=== PATIENT | female | born 1975 | race Caucasian/White ===

== ENCOUNTER → 2018-04-16 08:12 | Outpatient (CLI) | payer OTHER, SELFPAY ==
[2018-04-16 13:06] LABS: Cholesterol 105 mg/dL (200); Glucose 91 mg/dL (74-106); High Density Lipoprotein 39 mg/dL; T4 Free Direct 1.03 ng/dL (0.76-1.46); Triglycerides 94 mg/dL; Very Low Density Lipoprotein 19 mg/dL (5-40)
== END ==
PROVIDERS: Family Provider Family Medicine; PCP Family Medicine; Visit Provider Family Medicine
DX: E03.9 Hypothyroidism, unspecified (principal); Z13.220 Encounter for screening for lipoid disorders
CPT/HCPCS: 36415; 80061; 82947; 84439; 84443

== ENCOUNTER → 2020-09-14 12:17 | Outpatient (CLI) | payer OTHER, SELFPAY ==
[2020-03-05 15:00] VITALS: BMI 34.0
[2020-09-14 15:41] LABS: Absolute Lymphocyte Count 2.73 X10^3/uL (0.83-4.51); Basophil# 0.05 X10^3/uL; Basophil% 0.7 % (0-1); Eosinophil# 0.21 X10^3/uL; Eosinophils% 2.8 % (0-5); Hematocrit 42.1 % (37-47); Hemoglobin 13.4 g/dL (12.0-15.0); Lymphocyte # 2.73 X10^3/ul (4.0); Lymphocyte % 36.3 % (19-41); Mean Corp Hgb Conc 31.8 g/dL (32-36); Mean Corpuscular Volume 84.9 fL (81-99); Mean Platelet Vol. 11.9 fl (6.2-12.0); Monocyte# 0.51 X10^3/uL; Monocyte% 6.8 % (0-10); NRBC Flagged by Analyzer 0 % (0-5); Neutrophil # 4.01 X10^3/uL (2.7-7.7); Neutrophil % 53.1 % (47-70); Platelet Count 256 K/mm3 (150-450); RBC Distribution Width CV 13.6 % (11.6-14.6); RBC Distribution Width SD 41.9 fl (35.1-43.9); Red Blood Count 4.96 M/mm3 (4.2-5.4); White Blood Count 7.5 K/mm3 (4.4-11.0)
[2020-09-14 16:16] LABS: AST(SGOT) 21 U/L (15-37); Alanine Aminotransfer ALT/SGPT 28 U/L (13-56); Albumin, Serum 3.5 g/dL (3.2-5.0); Alkaline Phosphatase 65 U/L (45-117); Anion Gap 6 (5-15); BUN 14 mg/dL (7-18); Bilirubin, Direct 0.14 mg/dL (0.00-0.30); Calcium,Total 8.4 mg/dL (8.5-10.1); Chloride 107 mmol/L (98-107); EST Glomerular Filtration Rate 63 mL/min (>60); Est Glom Filt Rate - Afr Amer 76 mL/min (>60); Globulin 3.6 g/dL (2.2-4.2); Glucose 84 mg/dL (74-106); Potassium 3.6 mmol/L (3.5-5.1); Protein, Total 7.1 g/dL (6.4-8.2); Sodium Level 138 mmol/L (136-145); T4 Free Direct 0.97 ng/dL (0.76-1.46); Thyroid Stim Hormone (TSH) 0.25 uIU/mL (0.358-3.74)
[2020-09-15 10:16] LABS: Hepatitis B Surface Antibody Non-Reactive; Hepatitis B Surface Antigen Non-Reactive (Nonreactive); Hepatitis C Antibody Non-Reactive (Nonreactive); T3 Total - Triiodothyronine 1.15 ng/mL (0.6-1.81)
[2020-09-17 03:07] LABS: HEPATITIS B SURFACE AG Negative (Negative); Hepatitis A AB, Total Negative (Negative); Hepatitis A IgM Antibody Negative (Negative); Hepatitis B Core AB IgM Negative (Negative); Hepatitis B Core Ab Total Negative (Negative); Hepatitis C Ab <0.1 s/co ratio (0.0-0.9); QNTFERON TB Mitogen Value > 10.00 IU/mL (.); QNTFERON TB Nil Value 0.05 IU/mL (.); QNTFERON TB1+ Ag Value 0.04 IU/mL (.); QNTFERON TB2+ Ag Value 0.04 IU/mL (.)
[2020-09-17 05:43] LABS: Hep B Surface Antibodies Non Reactive (.); QNTIFERON TB Positive Criteria Negative (Negative)
== END ==
PROVIDERS: PCP Family Medicine; Referring Provider Dermatology Pediatric Dermatology; Visit Provider Dermatology Pediatric Dermatology
DX: L40.0 Psoriasis vulgaris (principal); L40.59 Other psoriatic arthropathy; R53.83 Other fatigue; Z79.899 Other long term (current) drug therapy
CPT/HCPCS: 36415; 80053; 82248; 84439; 84443; 84480; 85025; 86480; 86704; 86705; 86706; 86708; 86709; 86803; 87340

== ENCOUNTER → 2021-03-25 15:17 | Outpatient (CLI) | payer OTHER, SELFPAY ==
[2020-03-05 15:00] VITALS: BMI 34.0
--- NOTE | 2021-03-25 15:19 | BI_ITS ---
MAMMOGRAPHY - BILATERAL SCREENING REASON FOR EXAM: Female, 45 years old. Routine annual screening examination. PERTINENT HISTORY: Mother with breast cancer. TECHNIQUE: Digital bilateral breast eduard (3D mammographic acquisition) in the CC and MLO projections. 2-D mediolateral oblique (MLO) and craniocaudad (CC) views of both breasts were obtained. CAD: Full Field Digital Mammography with Computer Added Detection was performed. COMPARISON: Comparison is made with prior outside examination dated 03/02/2015. FINDINGS: Breast Composition: The breasts are heterogeneously dense, which may obscure small masses. There are no dominant masses or suspicious calcifications. Stable benign-appearing bilateral axillary lymph nodes. No other significant abnormalities are identified. There has been no significant change since the prior study. BI/SCRN MAMM (CAD)W/EDUARD BILAT IMPRESSION: Stable bilateral screening mammogram. Yearly follow-up mammogram recommended. (A) ASSESSMENT CATEGORY: BIRADS Category 2: Benign. A letter regarding these results will be sent to the patient by the facility within 30 days. Approximately 10% of breast cancers are not detected by mammography. A normal mammogram should not delay biopsy of a clinically suspicious abnormality. [id number] Electronically Signed: Claudio Isbell MD at 8:23 EDT , Service support ,
== END ==
PROVIDERS: PCP Internal Medicine; Referring Provider Obstetrics & Gynecology; Visit Provider Obstetrics & Gynecology
DX: Z12.31 Encounter for screening mammogram for malignant neoplasm of breast (principal)
CPT/HCPCS: 77063; 77067

== ENCOUNTER → 2022-05-13 | Outpatient (CLI) | payer OTHER, SELFPAY ==
[2022-05-13 12:16] LABS: Hemoglobin 12.7 g/dL (12.0-15.0); Mean Corpuscular Hgb 25.5 pg (27.0-32.0); Mean Corpuscular Volume 82.2 fL (81-99); Platelet Count 283 K/mm3 (150-450); RBC Distribution Width CV 15.5 % (11.6-14.6); RBC Distribution Width SD 45.9 fl (35.1-43.9); Red Blood Count 4.99 M/mm3 (4.2-5.4); White Blood Count 6.8 K/mm3 (4.4-11.0)
[2022-05-13 12:34] LABS: AST(SGOT) 27 U/L (15-37); Alanine Aminotransfer ALT/SGPT 31 U/L (13-56); Albumin, Serum 3.9 g/dL (3.2-5.0); Alkaline Phosphatase 67 U/L (45-117); Anion Gap 4 (5-15); BUN 14 mg/dL (7-18); BUN/Creat Ratio 13.1 RATIO (10-20); Chloride 107 mmol/L (98-107); Creatinine, Serum 1.07 mg/dL (0.55-1.02); EST Glomerular Filtration Rate 58 mL/min (>60); Est Glom Filt Rate - Afr Amer 70 mL/min (>60); Globulin 3.9 g/dL (2.2-4.2); Glucose 99 mg/dL (74-106); Protein, Total 7.8 g/dL (6.4-8.2); Sodium Level 139 mmol/L (136-145)
[2022-05-13 12:53] LABS: Hepatitis B Surface Antibody Non-Reactive
[2022-05-17 13:08] LABS: QNTFERON TB Mitogen Value > 10.00 IU/mL (.); QNTFERON TB Nil Value 0.17 IU/mL (.); QNTFERON TB1+ Ag Value 0.08 IU/mL (.); QNTFERON TB2+ Ag Value 0.08 IU/mL (.)
[2022-05-19 14:49] LABS: Hepatitis B Core Ab Total Negative (Negative); QNTIFERON TB Positive Criteria Negative (Negative)
== END | disposition home or self-care (01) ==
LOC: MTLAB 10:42
PROVIDERS: PCP Internal Medicine; Referring Provider Dermatology Pediatric Dermatology; Visit Provider Dermatology Pediatric Dermatology
DX: L40.0 Psoriasis vulgaris (principal); Z79.899 Other long term (current) drug therapy
CPT/HCPCS: 36415; 80053; 85027; 86480; 86704; 86706

== ENCOUNTER → 2022-11-21 | Outpatient (CLI) | payer OTHER, SELFPAY ==
[2022-11-21 10:56] LABS: Absolute Lymphocyte Count 1.96 X10^3/uL (0.83-4.51); Absolute Neutrophil Count 3.5 X10^3/uL (2.0-7.7); Basophil# 0.07 X10^3/uL; Basophil% 1.1 % (0-1); Eosinophil# 0.24 X10^3/uL; Eosinophils% 3.8 % (0-5); Hematocrit 25.1 % (37-47); Hemoglobin 7.4 g/dL (12.0-15.0); Lymphocyte # 1.96 X10^3/ul (0.83-4.51); Lymphocyte % 30.8 % (19-41); Mean Corp Hgb Conc 29.5 g/dL (32-36); Mean Corpuscular Hgb 23.4 pg (27.0-32.0); Mean Corpuscular Volume 79.4 fL (81-99); Monocyte% 9.4 % (0-10); NRBC Flagged by Analyzer 0.8 % (0-5); Neutrophil # 3.45 X10^3/uL (2.7-7.7); Neutrophil % 54.1 % (47-70); Platelet Count 306 K/mm3 (150-450); RBC Distribution Width CV 16.6 % (11.6-14.6); RBC Distribution Width SD 48.4 fl (35.1-43.9); Red Blood Count 3.16 M/mm3 (4.2-5.4); White Blood Count 6.4 K/mm3 (4.4-11.0)
[2022-11-24 18:50] LABS: HPV APTIMA, High Risk Negative (Negative)
== END | disposition home or self-care (01) ==
PROVIDERS: PCP Internal Medicine; Referring Provider Nurse Practitioner Women's Health; Visit Provider Nurse Practitioner Women's Health
DX: N92.0 Excessive and frequent menstruation with regular cycle (principal); Z12.4 Encounter for screening for malignant neoplasm of cervix; Z13.29 Encounter for screening for other suspected endocrine disorder
CPT/HCPCS: 36415; 84443; 85025; 87624; 88175; G0145

== ENCOUNTER → 2022-11-22 | Outpatient (CLI) | payer OTHER, SELFPAY ==
--- NOTE | 2022-11-22 14:11 | BI_ITS ---
MAMMOGRAPHY - BILATERAL SCREENING REASON FOR EXAM: Female, 47 years old. Routine annual screening examination. PERTINENT HISTORY: Mother with breast cancer. TECHNIQUE: Digital bilateral breast eduard (3D mammographic acquisition) in the CC and MLO projections. 2-D mediolateral oblique (MLO) and craniocaudad (CC) views of both breasts were obtained. CAD: Full Field Digital Mammography with Computer Added Detection was performed. COMPARISON: Comparison is made with prior study 03/25/2021. FINDINGS: Breast Composition: The breasts are heterogeneously dense, which may obscure small masses. There are no dominant masses or suspicious calcifications. Stable fat-containing bilateral axillary lymph nodes. No other significant abnormalities are identified. There has been no significant change since the prior study. BI/SCRN MAMM (CAD)W/EDUARD BILAT IMPRESSION: Stable bilateral screening mammogram. Yearly follow-up mammogram recommended. (A) ASSESSMENT CATEGORY: BIRADS Category 2: Benign. A letter regarding these results will be sent to the patient by the facility within 30 days. Approximately 10% of breast cancers are not detected by mammography. A normal mammogram should not delay biopsy of a clinically suspicious abnormality. [id number] Electronically Signed: Claudio Isbell MD at 15:25 EST ,
== END | disposition home or self-care (01) ==
PROVIDERS: PCP Internal Medicine; Referring Provider Nurse Practitioner Women's Health; Visit Provider Nurse Practitioner Women's Health
DX: Z12.31 Encounter for screening mammogram for malignant neoplasm of breast (principal); Z80.3 Family history of malignant neoplasm of breast
CPT/HCPCS: 77063; 77067

== ENCOUNTER → 2022-11-24 | Outpatient (CLI) | payer OTHER, SELFPAY ==
--- NOTE | 2022-11-24 | EMB_PTH ---
PATIENT: MELCHOR ROSS LOC: [facility] U#:[id number] AGE/SX: 47/F ROOM: RE11/24/[address]: DIANA Malone : 1975 BED: DIS: 11/24/2022 SPEC #: [id number] RECD: 11/24/22 10:43 STATUS: RADHA REQ #: [id number] MELANIE: 11/24/22 00:[address]: Lizbeth Lima NP DEPT: SURGICAL PATHOLOGY RECD BY: Delma Lynn ENTERED: 11/24/22 13:30 SP TYPE: ENDOM BX/C WONG DR: Dr. Alia Paulino MD Tissues: Endometrium, NOS Procedures: Surgery Specimen Level IV HEADER OPERATION: Endometrial biopsy PRE-OP DIAGNOSIS: Abnormal uterine bleeding TISSUE SUBMITTED: Endometrial tissue MICROSCOPIC DIAGNOSIS Endometrium, biopsy: Secretory endometrium. AM:catherine 11/25/2022 MICROSCOPIC DESCRIPTION Slides are reviewed. GROSS DESCRIPTION Received is one container labeled with the patient's name and not further designated. The specimen consists of multiple irregular fragments of light renee soft tissue that in aggregate measure 3 x 2 x 0.2 cm. The specimen is totally submitted in one cassette. / AM:catherine 11/24/2022 TC:5 CPT: 37513
== END | disposition home or self-care (01) ==
LOC: LABSPEC 10:51
PROVIDERS: PCP Internal Medicine; Referring Provider Nurse Practitioner Women's Health; Visit Provider Nurse Practitioner Women's Health
DX: N93.9 Abnormal uterine and vaginal bleeding, unspecified (principal)
CPT/HCPCS: 88305

== ENCOUNTER → 2022-11-29 | Outpatient (CLI) | payer OTHER, SELFPAY ==
--- NOTE | 2022-11-29 08:17 | US_ITS ---
STUDY: ULTRASOUND OF THE FEMALE PELVIS - COMPLETE REASON FOR EXAM: Female, 47 years old. Heavy menses. LMP: 10/26/2022. TECHNIQUE: Transabdominal and Transvaginal TECHNICAL QUALITY: Adequate. COMPARISON: None. FINDINGS: The uterus is anteverted and is tilted to the left side of the pelvis. The uterus measures 10.5 cm x 7.2 cm x 6.4 cm. Normal uterine cervix. The endometrium is thickened and measures 27 mm in thickness, and is heterogeneous (striated). There is no demonstrated endometrial mass. There is a 4.3 cm x 3.9 cm by 3.2 cm fundal fibroid. I.U.D. - The patient does not have an I.U.D. The right ovary is visualized. The right ovary measures 3.7 cm x 3.1 cm x 3.7 cm. There is a 2.9 cm x 2.9 cm x 2.7 cm right ovarian cyst. There is no visualized right adnexal mass or complex lesion. There is normal arterial and normal venous vascularity. The left ovary is visualized. The left ovary is enlarged and measures 7 cm x 7 cm x 5.8 cm. There is a 6.3 cm x 7 cm x 5.7 cm left ovarian cyst. There is no visualized left adnexal mass or complex lesion. There is normal arterial and normal venous vascularity. There is no fluid in the cul-de-sac. The pre void volume of the bladder was 221 ml. US/Pelvic (Non ) IMPRESSION: Heterogeneous thickening of the endometrium. Bilateral ovarian cysts more prominent on the left side. Electronically Signed: Claudio Isbell MD at 12:50 EST ,
== END | disposition home or self-care (01) ==
PROVIDERS: PCP Internal Medicine; Referring Provider Nurse Practitioner Women's Health; Visit Provider Nurse Practitioner Women's Health
DX: N92.0 Excessive and frequent menstruation with regular cycle (principal)
CPT/HCPCS: 76830; 76856

== ENCOUNTER → 2022-12-19 | Outpatient (CLI) | payer OTHER, SELFPAY ==
[2022-12-19 12:16] LABS: Absolute Lymphocyte Count 2.16 X10^3/uL (0.83-4.51); Absolute Neutrophil Count 2.7 X10^3/uL (2.0-7.7); Basophil# 0.04 X10^3/uL; Basophil% 0.7 % (0-1); Eosinophil# 0.19 X10^3/uL; Eosinophils% 3.4 % (0-5); Hematocrit 33.9 % (37-47); Hemoglobin 9.7 g/dL (12.0-15.0); Lymphocyte # 2.16 X10^3/ul (0.83-4.51); Lymphocyte % 39.1 % (19-41); Mean Corp Hgb Conc 28.6 g/dL (32-36); Mean Corpuscular Hgb 23.9 pg (27.0-32.0); Mean Corpuscular Volume 83.5 fL (81-99); Mean Platelet Vol. 10.7 fl (6.2-12.0); Monocyte# 0.37 X10^3/uL; Monocyte% 6.7 % (0-10); NRBC Flagged by Analyzer 0 % (0-5); Neutrophil # 2.74 X10^3/uL (2.7-7.7); Neutrophil % 49.7 % (47-70); Platelet Count 289 K/mm3 (150-450); RBC Distribution Width CV 17.1 % (11.6-14.6); RBC Distribution Width SD 52.2 fl (35.1-43.9); Red Blood Count 4.06 M/mm3 (4.2-5.4); White Blood Count 5.5 K/mm3 (4.4-11.0)
== END | disposition home or self-care (01) ==
LOC: PAVLAB 11:42
PROVIDERS: PCP Internal Medicine; Referring Provider Nurse Practitioner Women's Health; Visit Provider Nurse Practitioner Women's Health
DX: D64.9 Anemia, unspecified (principal)
CPT/HCPCS: 36415; 85025

== ENCOUNTER 2023-02-14 08:16 | Day surgery (SDC) | payer OTHER, SELFPAY ==
[2023-02-09 09:24] LABS: Absolute Neutrophil Count 4.2 X10^3/uL (2.0-7.7); Basophil# 0.07 X10^3/uL; Basophil% 0.9 % (0-1); Eosinophil# 0.19 X10^3/uL; Eosinophils% 2.5 % (0-5); Hematocrit 41.5 % (37-47); Hemoglobin 12.8 g/dL (12.0-15.0); Lymphocyte % 34.5 % (19-41); Mean Corp Hgb Conc 30.8 g/dL (32-36); Mean Corpuscular Hgb 24.7 pg (27.0-32.0); Mean Platelet Vol. 11.1 fl (6.2-12.0); Monocyte% 6.6 % (0-10); NRBC Flagged by Analyzer 0 % (0-5); Neutrophil # 4.15 X10^3/uL (2.7-7.7); Neutrophil % 55.2 % (47-70); Platelet Count 298 K/mm3 (150-450); RBC Distribution Width SD 42.5 fl (35.1-43.9); Red Blood Count 5.19 M/mm3 (4.2-5.4); White Blood Count 7.5 K/mm3 (4.4-11.0)
[2023-02-09 10:02] LABS: Magnesium 2.2 mg/dL (1.6-2.6); Thyroid Stim Hormone (TSH) 8.49 uIU/mL (0.358-3.74)
[2023-02-14] VITALS (13 sets, daily range): BP systolic 123–145; BP diastolic 77–102; PULSE 66–101; RESP 16–18; TEMP 36.2–37.4; O2SAT 95–100; BMI 36.8
[2023-02-14] MEDS: Lactated Ringers 1,000 ML 40 ML IV (08:50)
[2023-02-14] MEDS: Magnesium 1 GM over 15 mins IV (08:52)
[2023-02-14] MEDS: dexAMETHasone 4 MG/ML Vial 8 MG IV (09:10)
[2023-02-14] MEDS: Celecoxib 200 MG Capsule 400 MG PO (09:13)
[2023-02-14] MEDS: Phenazopyridine 95 MG Tablet 190 MG PO (09:14)
[2023-02-14] MEDS: Acetaminophen 500 MG Tablet 1000 MG PO (09:14)
[2023-02-14] MEDS: Gabapentin 600 MG Tablet PO (09:15)
[2023-02-14 09:26] LABS: Internal QC Validated? YES +Cl - CLEAR BKGD; Pregnancy, Serum, hCG Quali. NEGATIVE Negative
[2023-02-14 09:40] LABS: Bedside Glucose 109 mg/dL (74-106)
--- NOTE | 2023-02-14 10:04 | PCM.HP.BLA ---
History and Physical Date of Admission: 02/14/23 Intake Vital Signs ? 01/31/2314:46 01/31/2314:50 Height 5 ft 7 in 5 ft 7 in Weight: 235 lb 4 oz ? BMI 36.8 ? BP 133/82 H ? 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 Psoriasis Psoriatic arthritis Thyroid disorder Family History? Mother Heart disease Osteoporosis Breast cancerSon Diabetes Social History? Smoking Status:? Never smoker alcohol intake:? never substance use type:? does not use caffeine:? Yes what type of physical activity do you participate in:? walking seatbelt use:? always do you feel safe at home:? Yes HPI TVH left SO cysto Details: Details: MELCHOR ROSS is a 47 year old who presents for discussion about heavy menses, fibroid uterus, and a 7 cm cyst on her left ovary. She has tried multiple rounds of aygestin without success of stopping periods. She states that she had normal menses until October 27. On that day she started bleeding and has not stopped. ultrasound shows the following: FINDINGS: The uterus is anteverted and is tilted to the left side of the pelvis.? The uterus measures 10.5 cm x 7.2 cm x 6.4 cm.? Normal uterine cervix.? The endometrium is thickened and measures 27 mm in thickness, and is heterogeneous (striated).? There is no demonstrated endometrial mass. There is a 4.3 cm x 3.9 cm by 3.2 cm fundal fibroid. ? I.U.D. - The patient does not have an I.U.D. The right ovary is visualized.? The right ovary measures 3.7 cm x 3.1 cm x 3.7 cm.? There is a 2.9 cm x 2.9 cm x 2.7 cm right ovarian cyst.? There is no visualized right adnexal mass or complex lesion. There is normal arterial and normal venous vascularity. The left ovary is visualized.? The left ovary is enlarged and measures 7 cm x 7 cm x 5.8 cm.? There is a 6.3 cm x 7 cm x 5.7 cm left ovarian cyst. There is no visualized left adnexal mass or complex lesion.? There is normal arterial and normal venous vascularity. There is no fluid in the cul-de-sac. The pre void volume of the bladder was 221 ml. She would like to proceed with hysterectomy to stop the bleeding and avoid use of hormones and also to aleviate her pain. Female Reproductive History Last Menstrual Period: 10/27/22 Cycle Length: 21-35 Bleeding Duration: 8 Questions: metorrhagia: Yes and sexually active: Yes Menopausal Symptoms: No night sweats History ? ? ? 4 ? Elective abortions ? Hx Para ? ? ? 4 ? Spontaneous abortions ? Hx # Term Pregnancies ? Ectopic pregnancies ? Hx # Pregnancies ? Multiple births ? # of living children ? Past Pregnancies Del. Date Name GA/Weeks Outcome Route Bth Weight Infant Gen Labor Lgth Anesthesia Del Locatn Provider FOB Unknown 1994 Alee ? live - full term ? Unknown 1996 Justino ? live - full term ? Unknown 2000 Korey ? live - full term ? Unknown 2004 Jagger ? live - full term ? ROS Const ROS Unobtainable: All systems reviewed & are unremarkable except as noted in H Constitutional: Denies fatigue, night sweats, weight gain or weight loss ENT ENT: Reports system reviewed and no additional complaints, except as documented Cardio Card: Denies chest pain Resp Resp: Reports system reviewed and no additional complaints, except as documented; Denies cough GI GI: Reports as per HPI : Denies nipple discharge, urinary frequency, urinary incontinence, urinary hesitancy, urinary urgency, vaginal discharge, vaginal dryness, vaginal odor or vaginal pruritus Musc Musc: Denies arthralgias, back pain or muscle weakness Skin Skin/Breast: Denies alopecia, change in hair, dry skin, breast mass, breast pain, breast skin changes or nipple discharge Neuro Neuro: Reports system reviewed and no additional complaints, except as documented Psych Psych: Reports system reviewed and no additional complaints, except as documented Endo Endo: Denies cold intolerance, excessive sweating, heat intolerance or polydipsia Nelson/Lymph Hematologic/Lymphatic: Denies easy bleeding, Denies easy bruising and Denies lymphadenopathy Exam Const General: cooperative, healthy appearing, comfortable and no acute distress Orientation: alert [facility] [place] Head: normal to inspection and normocephalic Ears: hearing grossly normal bilaterally and external ears normal Nose: external nose normal and nares normal Face and sinus: normal facial exam Neck Neck: normal visual inspection and no lymphadenopathy Thyroid: thyroid normal Chest Chest palpation & inspection: normal inspection of the chest Resp Effort & Inspection: normal respiratory effort Auscultation: clear to auscultation bilaterally Cardio Rate: regular rate Rhythm: regular rhythm Heart Sounds: S1 normal and S2 normal GI Inspection: normal to inspection and non-distended Palpation: soft and no hepatosplenomegaly Musc Other: gross motor intact no deficits, full bilateral strength Skin General: no rashes or lesions noted Neuro General: patient alert, patient awake, moves all extremities and no focal motor deficits Motor: muscle tone normal throughout Extrem General: normal to inspection and no pedal edema Psych Appearance: grossly normal Mental Status: mental status grossly normal Affect: normal affect Speech and Movement: speech and movement normal Coding Level of Care Code No Charge Diagnoses Menorrhagia with regular cycle? N92.0 Uterine fibroid? D25.9 Simple ovarian cyst? N83.209 Assessment and Plan Assessment and Plan (1) Menorrhagia with regular cycle: ?Status:?Acute ?Comment: EMB:secretory endometrium (2) Uterine fibroid: ?Status:?Acute ?Comment: 4cm. Consult JV hysterectomy (3) Simple ovarian cyst: ?Status:?Acute ?Comment: Left:6cm Right:2cm Plan After discussing the patient's diagnosis and treatment plan options, patient wishes to proceed with surgical management.? I have discussed with the patient the risks, benefits, and alternatives of the procedure which include but are not limited to risks of anesthesia, bleeding, infection, possible damage to bowel, bladder, or surrounding vasculature which could lead to additional surgery to evaluate any complications.? Patient agrees to procedure and wishes to proceed.? ACOG/uptodate references given for additional information regarding procedure.?
--- NOTE | 2023-02-14 10:20 | HYST_PTH ---
PATIENT: MELCHOR ROSS [place] [facility] [place][id number] AGE/SX: 47/F ROOM: RE02/14/[address]: Dr. Vicky Hodgson DO : 1975 BED: DIS: 02/14/2023 SPEC #: [id number] RECD: 02/14/23 14:47 STATUS: RADHA LOVETT #: [id number] MELANIE: 02/14/23 10:[address]: Vicky Hodgson DEPT: SURGICAL PATHOLOGY RECD BY: Ephraim De Paz ENTERED: 02/15/23 08:14 SP TYPE: HYSTERECT OTHR DR: MD Dr. Alia Gee MD Tissues: Uterus, NOS Procedures: Surgery Specimen Level V HEADER OPERATION: ERAS, lap robotic hysterectomy, salpingo-oophorectomy, cystoscopy PRE-OP DIAGNOSIS: Menorrhagia with regular cycle, uterine fibroid, simple ovarian cyst TISSUE SUBMITTED: Uterus, cervix, bilateral fallopian tubes, cyst MICROSCOPIC DIAGNOSIS Uterus, hysterectomy: Cervix ? mild chronic inflammation. Endometrium ? weakly proliferative to inactive endometrium with focal benign stromal hyperplasia consistent with exogenous hormonal effect. Myometrium ? leiomyomas and adenomyosis. Right and left fallopian tubes ? benign paratubal cysts. AM:catherine 02/16/2023 MICROSCOPIC DESCRIPTION Slides are reviewed. GROSS DESCRIPTION Received in fixative is one container labeled with the patient's name and designated uterus, cervix, bilateral fallopian tube, cyst. The specimen consists of a hysterectomy specimen consisting of uterus with cervix and attached bilateral fallopian tubes with one of the fallopian tubes showing an adjacent cyst. The specimen could not be oriented due to small detached pieces of uterus. The uterus with cervix and detached pieces weigh in aggregate 184 gm. The uterus with cervix measures 11.5 x 8.0 x 9.0 cm. The detached piece of uterus measures in aggregate 6.0 x 5.0 x 2.0 cm. The serosal surface is renee, glistening. The ectocervical mucosa is focally congested. The external os is oval and patulous in contour. The endocervical canal measures 4.0 cm in length and the endocervical mucosa is renee, glistening and unremarkable. The triangular endometrial cavity measures 5.5 cm in length and up to 2.5 cm in width. The endometrium is renee, glistening without any mass lesion and measures 0.1 cm in thickness. Serial sections of the uterine wall reveal two nodular masses measuring 1.0 and 6.0 in greatest dimension. Sections of these masses reveal renee whorled cut surfaces without areas of hemorrhage, necrosis or cystic degeneration. The uterine wall measures up to 4.0 cm thickness. One fallopian tube measures 6.0 cm in length and 0.7 in diameter. The fimbrial end is identified. A paratubal cyst is also noted measuring 0.7 cm in greatest dimension. The second fallopian tube measures 7.5 cm in length and 0.6 in diameter. The fimbrial end is identified. A cyst is noted adjacent to the fimbrial end measuring 3.0 x 3.5 x 2.0 cm. A paratubal cyst is also noted measuring 1.0 cm in greatest dimension. The larger cyst external surface is inked and without any papillation. The larger cyst external surface is inked black. Sections reveal a collapse cyst without any cyst contents. No papillations are identified in the small cyst wall also. The cyst wall measures 0.2 cm in thickness. Pocket Maker sections are submitted in 12 cassettes as follows: 1 & 2 - cervix, 3-6 - uterine wall including endometrium, 7 - larger nodular mass, 8 - larger nodular mass and also smaller nodular mass, 9 - one fallopian tube, 10 - second fallopian tube and smaller paratubal cyst, 11 & 12 - larger cyst adjacent to the fallopian tube. / RIANA:catherine 02/15/2023 TC:1 CPT: 35044
[2023-02-14] MEDS: Cefazolin 2 GM in 0.9% Normal Saline 100 ML IV (10:28)
[2023-02-14] MEDS: Bupivacaine 0.25% 30 ML Vial (11:43)
--- NOTE | 2023-02-14 13:06 | PCM.OP.BLANK ---
Problems Associated Problem List Diagnoses (1) Menorrhagia with regular cycle: (2) Thickened endometrium: (3) Uterine fibroid: (4) Anemia: (5) Simple ovarian cyst: Operative Report Date of Procedure: 02/14/23 Preoperative diagnosis: menorrhagia, abnormal uterine bleeding, large posterior uterine fibroid, large left adnexal simple cyst Postoperative diagnosis: menorrhagia, abnormal uterine bleeding, large posterior uterine fibroid, large left adnexal simple cyst Procedure: Total robotic hysterectomy bilateral salpingectomy, removal of peritubal cyst on left adnexa, and cystoscopy surgeon: Dr. Vicky Hodgson DO Casting Technician: Evette CLEMENT Anesthesia: General endotracheal intubation Estimated blood loss: 100cc Urine output:800 Drains: None Implanted material: None Complications: None Findings: 13 cm size uterus, normal appearing ovaries and right fallopian tube, left large ashley-tubal cyst measuring 7 cm. On exploration of the abdominal cavity the uterus, adnexa, bowel, and liver were found to be normal, with exception of the large cyst on the left fallopian tube and posterior fibroid. Cystoscopy showed no evidence of leaking at approximately 250 cc of normal saline, positive ureteral orifices and jet flow are seen and no suture material was appreciated in the bladder. Specimens removed: Uterus and cervix, Bilateral tubes Reason for surgery: This is a 47-year-old G5, P5 who presented to my office with the complaint of irregular heavy periods. Ultrasound showed an enlarged uterus with a large left adnexal simple cyst. the planned procedure is for a robotic hysterectomy the risks benefits and alternatives were discussed with the patient the patient had a clear understanding of the procedure and a consent form was signed. Procedure: The patient was placed in the dorsal low lithotomy position and prepped and draped in the normal sterile fashion both abdominally and in the perineum. Her legs were placed in stirrups a Simpson catheter was inserted into the urethra without difficulty. A weighted speculum was placed in the vagina and a single-tooth tenaculum was used to grasp the anterior lip of the cervix. An advincula uterine manipulator was inserted through the cervix without complication. It was then tied into place at the 2 and 10:00 locations on the cervix. Gloves were changed and attention was turned towards the abdomen. Approximately 23 cm above the pubic symphysis in the midline, and after Marcaine injection, an 8 mm incision was made. An 8 mm trocar was inserted through the laparoscope, then inserted into the abdomen under direct visualization using the laparoscope. Good abdominal placement was noted and no complications were appreciated. An air seal device was utilized to create pneumoperitoneum. At 12 cm lateral to the midline on the left and right sides 8 mm accessory ports were placed. Next a left upper quadrant 8 mm information services assistant port site was placed. Next a small alxesis retractor was inserted in periumbilical site after extending the incision to 2 cm in size. The airseal device and camera robotic sites were used through this single site. The patient was placed in steep Trendelenburg position. The robot was docked. The hysterectomy was initiated first by taking down the round ligament on each side using the vessel sealer device. The fallopian tubes, including the left peritubal cyst were removed using the vessel sealer device to the level of the cornua/ These areas were freed without complication the broad ligament was then and taken down using the vessel sealer device. Next the bladder flap was taken down without complication. This was done using monopolar cautery to the level of the cervical vaginal junction. After the bladder flap was created, uterine vessels were then isolated and cauterized using the vessel sealer device and EndoShears. At this point the uterine vessels were taken down further starting from the ascending branch, dissecting along the edges of the cervix to the level of the cervical vaginal junction with hemostasis appreciated. The cervical vaginal junction was then using monopolar cautery in a circumferential pattern across the superior aspect of the cervix. The specimen was delivered through the vagina and sent to pathology. The remaining vaginal cuff was then closed using OV lock suture. This was performed in a running technique. Excellent hemostasis was obtained and good closure was noted. Irrigation was then performed. All operative sites were noted to be hemostatic. A cystoscopy was performed with a 70 degree cystoscope through the urethra into the bladder without complication. The bladder was instilled with approximately 250 cc of normal saline. Intraoperative images were made. Ureteral orifices and jets were identified. No suture material was appreciated in the bladder. The bladder was then drained and cystoscope was removed. The abdominal cavity was again examined using the laparoscope after the robot was undocked. All operative sites were noted to be hemostatic. The trochars were removed under direct visualization without complication and pneumoperitoneum was reduced. At this point the skin was then closed using 4-0 Monocryl subcuticular stitch and sealed with surgical glue. The patient tolerated the procedure well sponge lap and needle counts were correct x2 the patient was taken to the recovery room in stable condition. Multi Select Codes Urinary/Genital Urinary/Genital CPT Codes: 39689 Cystoscopy and 97068 TLH+BS/O >250gr uterus
--- NOTE | 2023-02-14 13:13 | DCINST_ITS ---
Discharge Instructions Diet Discharge Diet: No restrictions Activity May resume sexual activity in: 6 weeks Weight Bearing Status: Full weight bearing Dressing / Incision Call your doctor if your incision/area has: Continuous Slow Oozing, Sudden Increased Bleeding, Increased Pain/ Swelling, Increased Redness and Foul Smelling Discharge Call your doctor if you observe: Fever of 101 or Higher, Using more than 1 pad per hour, Shortness of breath, Chest pain and Uncontrolled pain Suture Line Care: Avoid Pulling/Pushing and Avoid Pinching/Bending Remove Dressing in: 1 week (if present) Cleanse incision/area with: Soap & Water and Keep Dressing Clean & Dry Follow Up Care Please Follow Up With: iVcky Hodgson DO When: Call to make an appointment with your doctor for a postop visit in 2 and 6 weeks Test Results: Test results from this visit will be discussed in further detail at your follow- up appointment, if applicable. Discharge Plan Admission Primary Reason for Your Visit: hysterectomy Attending Provider: Vicky Hodgson Primary Care Provider: Alia Paulino Consulting Providers: Vasiliy Narvaez Discharge Orders/Prescriptions Prescriptions: New oxycodone-acetaminophen [Percocet] 5-325 mg tablet 1 tab PO Q4H PRN (Reason: pain) 7 Days Qty: 30 0RF Rx Instructions: 1-2 tabs q 4 hrs as needed for pain naproxen 500 mg tablet 500 mg PO BID PRN (Reason: pain) Qty: 30 0RF Continued Tremfya 100 mg/mL syringe 100 mg subcut Q8W levothyroxine 150 MCG tablet 200 mcg PO DAILY Women's 50 Plus Advanced 400-20 mcg Tablet 1 tab PO DAILY Discontinued megestrol 40 mg tablet 40 mg PO DAILY Qty: 30 0RF Referrals / Follow Up: Alia Paulino MD [Primary Care Provider] - Disposition Disposition (needs filled in before D/C Order can be placed): Home, Self Care
[2023-02-14] MEDS: Lactated Ringers @ 70 MLS/HR 70 ML IV (13:15)
[2023-02-14] MEDS: HYDROcodone Bitartrate/Apap 5/325 Tablet PO (15:48)
[2023-02-14] MEDS: Ondansetron 4 MG/2 ML Vial IM (16:26)
== END 2023-02-14 18:23 | disposition home or self-care (01) ==
LOC: SDC 08:17 → AC 08:18
PROVIDERS: Anesthesiology; PCP Internal Medicine; Referring Provider Obstetrics & Gynecology; Visit Provider Obstetrics & Gynecology
PROC: 0UT94ZZ Resection of Uterus, Percutaneous Endoscopic Approach (ICD-10-PCS; CPT 58571; principal; 2023-02-14 10:00)
DX: N80.03 Adenomyosis of the uterus (principal); D25.9 Leiomyoma of uterus, unspecified; N83.8 Other noninflammatory disorders of ovary, fallopian tube and broad ligament; E07.9 Disorder of thyroid, unspecified; Z79.899 Other long term (current) drug therapy
CPT/HCPCS: 58571; S2900; 00840; 36415; 82962; 83735; 84443; 84703; 85025; 86850; 86900; 86901; 88307; 93005; J7120; J2405; J3475

== ENCOUNTER → 2023-09-04 | Outpatient (CLI) | payer OTHER, SELFPAY ==
[2023-09-06 18:07] LABS: Hepatitis B Core Ab Total Negative (Negative); QNTFERON TB Mitogen Value > 10.00 IU/mL (.); QNTFERON TB Nil Value 0.03 IU/mL (.); QNTFERON TB1+ Ag Value 0.04 IU/mL (.); QNTFERON TB2+ Ag Value 0.05 IU/mL (.); QNTIFERON TB Positive Criteria Negative (Negative)
== END | disposition home or self-care (01) ==
LOC: MTLAB 14:17
PROVIDERS: PCP Internal Medicine; Referring Provider Physician Assistant; Visit Provider Physician Assistant
DX: L40.0 Psoriasis vulgaris (principal); Z79.899 Other long term (current) drug therapy
CPT/HCPCS: 36415; 86480; 86704

== ENCOUNTER 2023-11-09 06:30 | Emergency (ER) | payer OTHER, SELFPAY ==
[2023-11-09 06:31] VITALS: BP 140/86; PULSE 93; RESP 16; TEMP 36.3; O2SAT 98; BMI 34.3
--- NOTE | 2023-11-09 06:53 | RAD_ITS ---
EXAM: XR CHEST, 1 VIEW CLINICAL INDICATION: syncope TECHNIQUE: Frontal view of the chest. COMPARISON: Two-view chest 11/22/2017 FINDINGS: LUNGS AND PLEURAL SPACES: Unremarkable. No consolidation or edema. No pneumothorax. No effusion. HEART: Unremarkable. Cardiac silhouette not enlarged. MEDIASTINUM: Central airways and mediastinal contour are unremarkable. BONES/JOINTS: Unremarkable. No acute fracture. SOFT TISSUES: Unremarkable. RAD/Chest 1 View (Portable) IMPRESSION: No radiographic evidence of acute cardiopulmonary disease. Electronically Signed: Sid Womack MD at 7:53 EST ,
--- NOTE | 2023-11-09 06:55 | EKG12_ITS ---
Test Reason : SYNCOPE Blood Pressure : / mmHG Vent. Rate : 083 BPM Atrial Rate : 083 BPM P-R Int : 170 ms QRS Dur : 078 ms QT Int : 382 ms P-R-T Axes : 027 -16 019 degrees QTc Int : 448 ms Normal sinus rhythm Normal ECG Confirmed by DEVONTE MANLEY, ALONZO ([id number]), business editor RODRIGO GARCIA ([id number]) on 11/10/2023 7:14:33 AM Referred By: Confirmed By:ALONZO WHITNEY MD
[2023-11-09 07:05] LABS: Absolute Lymphocyte Count 1.84 X10^3/uL (0.83-4.51); Basophil# 0.06 X10^3/uL; Basophil% 0.5 % (0-1); Eosinophil# 0.09 X10^3/uL; Eosinophils% 0.8 % (0-5); Hematocrit 45.7 % (37-47); Hemoglobin 14.6 g/dL (12.0-15.0); Lymphocyte # 1.84 X10^3/ul (0.83-4.51); Lymphocyte % 15.5 % (19-41); Mean Corp Hgb Conc 31.9 g/dL (32-36); Mean Corpuscular Hgb 27.5 pg (27.0-32.0); Mean Corpuscular Volume 86.2 fL (81-99); Monocyte# 0.87 X10^3/uL; Monocyte% 7.3 % (0-10); NRBC Flagged by Analyzer 0 % (0-5); Neutrophil # 8.96 X10^3/uL (2.7-7.7); Neutrophil % 75.5 % (47-70); Platelet Count 291 K/mm3 (150-450); RBC Distribution Width CV 13.3 % (11.6-14.6); RBC Distribution Width SD 41.9 fl (35.1-43.9); White Blood Count 11.9 K/mm3 (4.4-11.0)
--- NOTE | 2023-11-09 07:11 | EX.ED.DYSGE1 ---
HPI History of Present Illness Chief Complaint: Syncope Narrative Narrative: 48-year-old female presenting to the emergency department following a syncopal episode. Patient states that she woke this morning and realized that she slept in her contacts. She sat on the bed and got her phone light turned on and eventually made her way into the bathroom. She states that she started to remove her contacts when suddenly she felt like she might pass out. She tried to stabilize herself but ended up having a syncopal episode and falling to the ground. She states that she has pain in the muscle between her shoulder and her right side of her neck. She denies any headache or head injury. The patient notes that she did was not experiencing any chest pain or palpitations diaphoresis or any pain before she passed out. She does not feel that she got up too quickly. She does not have a history of syncope. Family that was with her stated that she looked very pale but was not diaphoretic. No loss of bowel or bladder control. The patient notes that she did go tanning yesterday and caused a sunburn. She does not feel dehydrated. [facility] Medical History Anemia Anxiety Back pain CPAP (continuous positive airway pressure) dependence Depression Menorrhagia with regular cycle Migraine headache Non-smoker Psoriasis Psoriatic arthritis Simple ovarian cyst Thickened endometrium Thyroid disorder Uterine fibroid Wears contact lenses Wears partial dentures Home Medications levothyroxine 150 mcg tablet 150 mcg PO DAILY HYPOTHYROID 11/22/17 [History Last Taken 02/14/23] guselkumab 100 mg/mL subcutaneous syringe (Tremfya) 100 mg subcut Q8W 11/21/22 [History Last Taken Unknown] ogmqiwrbcisl-lknlybus-gxlvwpm-folic acid 400 mcg-vit K1 20 mcg tablet (Women's 50 Plus Advanced) 1 tab PO DAILY 02/07/23 [History Last Taken Unknown] fluoxetine 20 mg capsule 20 mg PO DAILY 11/09/23 [History Last Taken Unknown] hydroxyzine HCl 25 mg tablet 25 mg PO QHS PRN anxiety 11/09/23 [History Last Taken Unknown] Allergy/AdvReac Type Severity Reaction Status Date / Time No Known Allergies Allergy Verified 03/29/23 08:33 Family History Mother Heart disease Osteoporosis Breast cancer Son Diabetes Surgical History Hx of wisdom tooth extraction Status post hysterectomy Social History Smoking Status: Never smoker alcohol intake: never substance use type: does not use caffeine: Yes what type of physical activity do you participate in: walking seatbelt use: always do you feel safe at home: Yes ROS ROS ED Constitutional Constitutional ED: Denies chills or weight loss Eyes Eyes: Denies change in vision or diplopia ENT ENT ED: Denies ear pain, rhinorrhea or sore throat Cardiovascular Cardiovascular: Reports other Details: Syncope ; Denies chest pain, orthopnea, palpitations or racing heartbeat Respiratory/Chest Respiratory/Chest: Denies cough, dyspnea or orthopnea Gastrointestinal Gastrointestinal: Denies abdominal pain, diarrhea, nausea or vomiting Genitourinary Genitourinary ED: Denies dysuria, hematuria or urinary frequency Musculoskeletal Musculoskeletal: Reports neck pain; Denies arthralgias or myalgias Integumentary Denies abscess or rash Neurologic Neurologic: Denies headache(s) or weakness Psychiatric Psychiatric: Denies anxiety, depression, suicidal ideation or suicidal thoughts Endocrine Endocrinology: Denies polydipsia, polyphagia or polyuria Allergic/Immunologic Allergic/Immunologic ED: Denies mouth swelling, tongue swelling or urticaria EXAM Physical Exam Const Vital Signs: 11/09/23 06:31 11/09/23 07:43 Temperature 97.3 F L Temperature Source Temporal Pulse Rate 93 Pulse Rate [Lying] 82 Pulse Rate [Sitting (for 1 minute prior to obtaining)] 85 Pulse Rate [Standing (for 1 minute prior to obtaining)] 87 Respiratory Rate 16 Blood Pressure 140/86 H Blood Pressure [Lying] 139/51 H Blood Pressure [Sitting (for 1 minute prior to obtaining)] 125/80 H Blood Pressure [Standing (for 1 minute prior to obtaining)] 115/69 Blood Pressure Mean 104 Blood Pressure Mean [Lying] 80 Blood Pressure Mean [Sitting (for 1 minute prior to obtaining)] 95 Blood Pressure Mean [Standing (for 1 minute prior to obtaining)] 84 Pulse Ox 98 Oxygen Delivery Method Room Air Positive well nourished and well developed General Appearance ED: well developed HEENT Reports normocephalic, head/scalp atraumatic and moist mucous membranes Eyes PERRL and EOMs intact bilaterally Neck no lymphadenopathy, supple and no JVD Resp normal respiratory effort and clear to auscultation bilaterally Cardio regular rate, regular rhythm and no murmurs GI normal to inspection, nondistended, normoactive bowel sounds and non-tender Palpation: soft Back/Spine no CVA tenderness and normal ROM Extremity normal to inspection General Extremety ED: Negative for edema General Extremity: Negative for edema Neuro oriented x3 and CN's II-XII intact bilaterally Sensorium / Orientation: alert Motor Exam: strength 5/5 throughout Psych mental status grossly normal Mood & Affect: Negative for depressed or tearful Skin no rashes or lesions noted and no wounds MDM MDM MDM Narrative Medical decision making narrative: Basic blood works obtained shows a normal troponin of 4. My independent interpretation of the chest x-ray is normal mediastinal silhouette. No acute process. Patient's had no events on the monitor is remained in normal sinus rhythm. She never had chest pain or palpitations prior to the event. Things reasonable that the patient go home. I believe she has a's cervical myofascial strain of the neck and with no midline tenderness and reproducible with palpation of the muscle belly I do not believe neck films are indicated. Patient to return if worsening or any concerns. Please follow-up with primary care History & Record Review Discussion w/independent historian: Patient and Family Lab Data Attestation: I reviewed the patient's lab results. Labs: Laboratory Results - last 24 hr 11/09/23 06:40 WBC 11.9 H RBC 5.30 Hgb 14.6 Hct 45.7 MCV 86.2 MCH 27.5 MCHC 31.9 L RDW Std Deviation 41.9 RDW Coeff of [place] 13.3 Plt Count 291 MPV 11.0 Immature Gran % (Auto) 0.400 Neut % (Auto) 75.5 H Lymph % (Auto) 15.5 L [place] % (Auto) 7.3 Eos % (Auto) 0.8 Baso % (Auto) 0.5 Absolute Neuts (auto) 9.0 H Absolute Lymphs (auto) 1.84 Nucleated RBC % 0 Sodium 139 Potassium 3.4 L Chloride 107 Carbon Dioxide 27.0 Anion Gap 5 BUN 16 Creatinine 1.08 H Estim Creat Clear Calc 75.52 Est GFR (MDRD) Af Amer 69 Est GFR (MDRD) Non-Af 57 L BUN/Creatinine Ratio 14.8 Glucose 102 Calcium 9.5 Troponin I High Sens 4 Radiography Diagnostic Testing: Clinical Impression(s) from Imaging Studies Chest X-Ray 11/09/23 06:53 IMPRESSION: No radiographic evidence of acute cardiopulmonary disease. Electronically Signed: Sid Womack MD at 7:53 EST , EKG Initial EKG: Attestation: I personally reviewed and interpreted this EKG as follows: Interpretation: Sinus Rhythm Comments: Normal sinus rhythm ventricular rate of 83 bpm Discharge Plan Triage Chief Complaint: Syncope ED Provider: Ruben Aguayo Dx/Rx/DC Orders Clinical Impression: Acute cervical myofascial strain, Syncope and collapse Instructions: ED Neck Sprain or Strain, ED Fainting, Uncertain Cause Prescriptions: No Action Tremfya 100 mg/mL syringe 100 mg subcut Q8W levothyroxine 150 MCG tablet 150 mcg PO DAILY Women's 50 Plus Advanced 400-20 mcg Tablet 1 tab PO DAILY hydroxyzine HCl 25 mg tablet 25 mg PO QHS PRN (Reason: anxiety) fluoxetine 20 mg capsule 20 mg PO DAILY Primary Care Provider: AMPARO ANTHONY Referrals: Alia Paulino MD [Med Staff - [place]] - 1-2 Weeks
[2023-11-09 07:37] LABS: Anion Gap 5 (5-15); BUN 16 mg/dL (7-18); BUN/Creat Ratio 14.8 RATIO (10-20); Calcium,Total 9.5 mg/dL (8.5-10.1); Chloride 107 mmol/L (98-107); Creatinine, Serum 1.08 mg/dL (0.55-1.02); EST Glomerular Filtration Rate 57 mL/min (>60); Est Glom Filt Rate - Afr Amer 69 mL/min (>60); Estimated Creatinine Clearance 75.52 ml/min; Glucose 102 mg/dL (74-106); Potassium 3.4 mmol/L (3.5-5.1); Sodium Level 139 mmol/L (136-145); Troponin-I HS 4 pg/mL (3.0-54.0)
--- OUTSIDE RECORDS SUMMARY | 2023-11-09 07:40 | XMS RPT_ITS | CCD ---
Author Name Unknown Address [address] [place] [address] Organization [facility] Care Team Providers Care Linux System Administrator Name Role Phone Sonya Heredia Unavailable Unavailab Kim Calle MD Unavailable [phone] Kim Castrejon MD Unavailable [phone] Sonya Heredia Unavailable Unavailab Alia Dos Santos MD Primary Care Provider Alia Curry MD Primary Care Provider Alia Curry MD Primary Care Provider Alia Curry MD Primary Care Provider OLDER, SHANTI Referring Unavailable GANTA, ALIA Primary Care Unavailable OLDER, SHANTI Referring Unavailable GANTA, ALIA Primary Care Unavailable OLDER, SHANTI Referring Unavailable GANTA, ALIA Primary Care Unavailable GANTA, ALIA Primary Care Unavailable OLDER, SHANTI Attending Unavailable GARCIA, SANDRINE Attending Unavailable GANTA, ALIA Primary Care Unavailable GANTA, ALIA Primary Care Unavailable GANTA, ALIA Referring Unavailable GANTA, ALIA Primary Care Unavailable GANTA, ALIA Attending Unavailable GANTA, ALIA Primary Care Unavailable GANTA, ALIA Referring Unavailable GANTA, ALIA Referring Unavailable GANTA, ALIA Primary Care Unavailable GANTA, ALIA Referring Unavailable GANTA, ALIA Primary Care Unavailable GANTA, ALIA Primary Care Unavailable GANTA, ALIA Attending Unavailable GANTA, ALIA Primary Care Unavailable OLDER, SHANTI Referring Unavailable GANTA, ALIA Primary Care Unavailable OLDER, SHANTI Attending Unavailable Allergies Allergy Classification Reported Allergen(s) Allergy Type Date of Onset Reaction(s) Facility (5 sources) [facility] drug allergy 7 [facility] (20 sources) methIMAzole; Translations: [METHIMAZOLE] Drug Allergy 5 Rash [facility] Work Phone: (20 sources) Propylthiouracil; Translations: [PROPYLTHIOURACIL ] Drug Allergy 5 Hives [facility] Work Phone: (20 sources) environmental [Other] Propensity to adverse reactions 5 [facility] Work Phone: (1 source) OTHER; Translations: [OTHER] Propensity to adverse reactions (disorder) 5 [facility] Medications Current Medications Medication Drug Class(es) Dates Sig (Normalized) Sig (Original) amoxicillin 875 mg oral tablet (1 source) Penicillin-class Antibacterial Start: 05-26-2023 End: 06-05-2023 take 1 tablet by mouth twice daily at mealtime amoxicillin (AMOXIL) 875 mg tablet Take 1 tablet by mouth twice daily for 10 days. Take with food. 20 tablet 0 05/26/2023 06/05/2023 Active Completed/Discontinued Medications Medication Drug Class(es) Dates Sig (Normalized) Sig (Original) [id number] 200 actuat albuterol 0.09 mg/actuat metered dose inhaler (18 sources) beta2-Adrenergic Agonist Start: 08-19-2022 End: 05-26-2023 take 2 puff(s) by inhalation every four hours as needed for wheezing albuterol HFA (VENTOLIN HFA) 90 mcg/actuation inhaler Indications: Shortness of breath Inhale 2 Puffs as instructed every 4 hours as needed for wheezing/shortnes s of breath. 1 Each 0 05/26/2023 Active Problems Active Problems Problem Classification Problem Date Documented Date Episodic/Chronic Anxiety disorders (9 sources) Generalized anxiety disorder; Translations: [Mixed anxiety and depressive disorder] Onset: 04-14-2010 04-14-2010 Chronic Complications of surgical procedures or medical care (20 sources) Postablative hypothyroidism; Translations: [Postprocedural hypothyroidism] 11-07-2007 Chronic Diabetes mellitus without complication (1 source) Other abnormal glucose; Translations: [Elevated glucose] Onset: 10-11-2023 Episodic Headache, including migraine (6 sources) Migraine without aura; Translations: [Migraine without aura, not intractable, without status migrainosus] Onset: 11-11-2009 11-11-2009 Chronic Headache; including migraine (1 source) Headache; Translations: [Nonintractable headache, unspecified chronicity pattern, unspecified headache type] Episodic Malaise and fatigue (1 source) Fatigue; Translations: [Other fatigue] Episodic Mood disorders (20 sources) Mixed anxiety and depressive disorder; Translations: [Depressive disorder] Onset: 10-01-2014 06-13-2017 Chronic Nonspecific chest pain (3 sources) Chest pain; Translations: [Chest pain, unspecified] Onset: 09-12-2023 Episodic Other connective tissue disease (1 source) Patellar bursitis of right knee; Translations: [Other bursitis of knee, right knee] Episodic Other connective tissue disease (1 source) Pain in right foot; Translations: [Pain in right foot] 09-11-2023 Episodic Other connective tissue disease (1 source) Pain in right foot; Translations: [Right foot pain] Onset: 09-08-2023 Episodic Other inflammatory condition of skin (1 source) Psoriatic arthritis; Translations: [Arthropathic psoriasis, unspecified] Chronic Other lower respiratory disease (1 source) Cough; Translations: [Acute cough] Episodic Other lower respiratory disease (3 sources) Dyspnea; Translations: [Shortness of breath] Episodic Other non-traumatic joint disorders (3 sources) Pain in right knee; Translations: [Pain in joint, lower leg] Episodic Other nutritional; endocrine; and metabolic disorders (20 sources) Obesity; Translations: [Obesity, unspecified] Onset: 11-07-2007 11-07-2007 Chronic Other nutritional; endocrine; and metabolic disorders (20 sources) Metabolic syndrome X; Translations: [Metabolic syndrome] Onset: 04-19-2012 04-19-2012 Chronic Other screening for suspected conditions (not mental disorders or infectious disease) (5 sources) Patient encounter status; Translations: [Encounter for screening mammogram for malignant neoplasm of breast] Onset: 09-12-2023 Episodic Other skin disorders (1 source) Loss of hair; Translations: [Nonscarring hair loss, unspecified] Episodic Other skin disorders (1 source) Facial swelling ; Translations: [Localized swelling, mass and lump, head] 05-26-2023 Episodic Otitis media and related conditions (1 source) Acute otitis media; Translations: [Otitis media, unspecified, unspecified ear] Episodic Residual codes; unclassified (3 sources) Obstructive sleep apnea syndrome; Translations: [Obstructive sleep apnea (adult) (pediatric)] Chronic Residual codes; unclassified (1 source) Sleep apnea, unspecified; Translations: [Sleep apnea, unspecified type] Onset: 12-16-2022 Chronic Residual codes; unclassified (1 source) Generalized aches and pains; Translations: [Pain, unspecified] Episodic Thyroid disorders (20 sources) Hypothyroidism following radioiodine therapy; Translations: [Hypothyroidism] Onset: 10-30-1999 11-13-2009 Chronic Unclassified (3 sources) Gynecologic examination ; Translations: [Encounter for gynecological examination (general) (routine) with abnormal findings] Onset: 06-13-2017 06-13-2017 Unclassified (4 sources) Screening mammography ; Translations: [Encounter for screening mammogram for malignant neoplasm of breast] Onset: 05-16-2017 05-18-2017 Unclassified (2 sources) Procedure carried out on subject; Translations: [Encounter for screening for human papillomavirus (HPV)] Onset: 06-13-2017 06-13-2017 Unclassified (1 source) Dysmetabolic syndrome; Translations: [Dysmetabolic syndrome] Onset: 04-19-2012 Viral infection (1 source) Viral disease; Translations: [Viral infection, unspecified] Episodic Past or Other Problems Problem Classification Problem Date Documented Date Episodic/Chronic Fever of unknown origin (2 sources) Fever; Translations: [Fever, unspecified] Onset: 11-15-2022 Episodic Genitourinary symptoms and ill-defined conditions (2 sources) Dysuria; Translations: [Dysuria] Onset: 11-15-2022 Episodic Immunizations and screening for infectious disease (3 sources) Encounter for screening for human papillomavirus (HPV); Translations: [Encounter for screening for human papillomavirus (HPV)] Onset: 06-13-2017 06-13-2017 Episodic Other lower respiratory disease (1 source) Shortness of breath; Translations: [Shortness of breath] Onset: 05-26-2023 Episodic Other nutritional; endocrine; and metabolic disorders (6 sources) H/O: thyroid disorder; Translations: [Personal history of other endocrine, nutritional and metabolic disease] Onset: 10-30-1999 11-13-2009 Episodic Other skin disorders (1 source) Localized swelling, mass and lump, head; Translations: [Facial swelling] Onset: 05-26-2023 Episodic Other upper respiratory infections (6 sources) Acute maxillary sinusitis; Translations: [Acute maxillary sinusitis, unspecified] Onset: 05-26-2023 Episodic Spondylosis; intervertebral disc disorders; other back problems (6 sources) Backache; Translations: [Dorsalgia, unspecified] Onset: 11-11-2009 11-11-2009 Episodic Unclassified (5 sources) Abnormal cytology findings; Translations: [Other abnormal findings in specimens from female genital organs] Onset: 06-13-2017 06-13-2017 Episodic Results Test Name Value Interpretation Reference Range Facil ity Vital Signs Date Time Vital Sign Value Performing Clinician Isaias aguilera 09-07-2023 14:24-0500 Body weight 109.77 kg Shanti Older RESERVATION MANAGER.PURCHASING ANALYST Work Phone: [facility] 09-07-2023 14:24-0500 Diastolic blood pressure 80 mm[Hg] Shanti Older RESERVATION MANAGER.PURCHASING ANALYST Work Phone: [facility] 09-07-2023 14:24-0500 Heart rate 77 /min Shanti Older RESERVATION MANAGER.PURCHASING ANALYST Work Phone: [facility] 09-07-2023 14:24-0500 Respiratory rate 16 /min Shanti Older RESERVATION MANAGER.PURCHASING ANALYST Work Phone: [facility] 09-07-2023 14:24-0500 SaO2% (BldA) [Mass fraction] 96 % Shanti Older RESERVATION MANAGER.PURCHASING ANALYST Work Phone: [facility] 09-07-2023 14:24-0500 Systolic blood pressure 130 mm[Hg] Shanti Older RESERVATION MANAGER.PURCHASING ANALYST Work Phone: [facility] 05-26-2023 12:18-0400 Body temperature 97.59 [degF] Sandrine Garcia RESERVATION MANAGER.EMPLOYMENT CASE MANAGER Work Phone: [facility] 05-26-2023 12:18-0400 Body weight 111.58 kg Sandrine Garcia RESERVATION MANAGER.EMPLOYMENT CASE MANAGER Work Phone: [facility] 05-26-2023 12:18-0400 Diastolic blood pressure 82 mm[Hg] Sandrine Garcia RESERVATION MANAGER.EMPLOYMENT CASE MANAGER Work Phone: [facility] 05-26-2023 12:18-0400 Heart rate 64 /min Sandrine Garcia RESERVATION MANAGER.EMPLOYMENT CASE MANAGER Work Phone: [facility] 05-26-2023 12:18-0400 Respiratory rate 16 /min Sandrine Garcia RESERVATION MANAGER.EMPLOYMENT CASE MANAGER Work Phone: [facility] 05-26-2023 12:18-0400 SaO2% (BldA) [Mass fraction] 100 % Sandrine Garcia RESERVATION MANAGER.EMPLOYMENT CASE MANAGER Work Phone: [facility] 05-26-2023 12:18-0400 Systolic blood pressure 122 mm[Hg] Sandrine Garcia RESERVATION MANAGER.EMPLOYMENT CASE MANAGER Work Phone: [facility] 11-14-2022 09:43-0500 Body height 170.2 cm Alia Curry MD Work Phone: [facility] 11-14-2022 09:43-0500 Body temperature 99.39 [degF] Alia Curry MD Work Phone: [facility] 11-14-2022 09:43-0500 Body weight 106.14 kg Alia Curry MD Work Phone: [facility] 11-14-2022 09:43-0500 Diastolic blood pressure 70 mm[Hg] Alia Curry MD Work Phone: [facility] 11-14-2022 09:43-0500 Heart rate 93 /min Alia Curry MD Work Phone: [facility] 11-14-2022 09:43-0500 Respiratory rate 12 /min Alia Curry MD Work Phone: [facility] 11-14-2022 09:43-0500 SaO2% (BldA) [Mass fraction] 99 % Alia Curry MD Work Phone: [facility] 11-14-2022 09:43-0500 Systolic blood pressure 130 mm[Hg] Alia Curry MD Work Phone: [facility] 08-19-2022 13:02-0400 Diastolic blood pressure 86 mm[Hg] Shanti Older RESERVATION MANAGER.PURCHASING ANALYST Work Phone: [facility] 08-19-2022 13:02-0400 Systolic blood pressure 134 mm[Hg] Shanti Older RESERVATION MANAGER.PURCHASING ANALYST Work Phone: [facility] 05-19-2022 10:09-0400 Body weight 105.69 kg Shanti Older RESERVATION MANAGER.PURCHASING ANALYST Work Phone: [facility] 05-19-2022 10:09-0400 Diastolic blood pressure 72 mm[Hg] Shanti Older RESERVATION MANAGER.PURCHASING ANALYST Work Phone: [facility] 05-19-2022 10:09-0400 Heart rate 68 /min Shanti Older RESERVATION MANAGER.PURCHASING ANALYST Work Phone: [facility] 05-19-2022 10:09-0400 Respiratory rate 16 /min Shanti Older RESERVATION MANAGER.PURCHASING ANALYST Work Phone: [facility] 05-19-2022 10:09-0400 Systolic blood pressure 114 mm[Hg] Shanti Older RESERVATION MANAGER.PURCHASING ANALYST Work Phone: [facility] 01-19-2022 17:55-0400 Body height 170.2 cm Alia Curry MD Work Phone: [facility] 01-19-2022 17:55-0400 Body temperature 98.2 [degF] Alia Curry MD Work Phone: [facility] 01-19-2022 17:55-0400 Body weight 105.23 kg Alia Curry MD Work Phone: [facility] 01-19-2022 17:55-0400 Diastolic blood pressure 60 mm[Hg] Alia Curry MD Work Phone: [facility] 01-19-2022 17:55-0400 Heart rate 88 /min Alia Curry MD Work Phone: [facility] 01-19-2022 17:55-0400 Respiratory rate 12 /min Alia Curry MD Work Phone: [facility] 01-19-2022 17:55-0400 SaO2% (BldA) [Mass fraction] 98 % Alia Curry MD Work Phone: [facility] 01-19-2022 17:55-0400 Systolic blood pressure 120 mm[Hg] Alia Curry MD Work Phone: [facility] 06-13-2017 09:46-0400 BMI (Body Mass Index) 34.86 kg/m2 Kim Castrejon MD [facility] 06-13-2017 09:46-0400 Body Temperature 97.5 [degF] Kim Castrejon MD [facility] 06-13-2017 09:46-0400 BP Diastolic 86 mm[Hg] Kim Castrejon MD [facility] 06-13-2017 09:46-0400 BP Systolic 127 mm[Hg] Kim Castrejon MD [facility] 06-13-2017 09:46-0400 Height 170.18 cm Kim Castrejon MD [facility] 06-13-2017 09:46-0400 Pulse (Heart Rate) 73 /min Kim Castrejon MD [facility] 06-13-2017 09:46-0400 Respiratory Rate 16 /min Kim Castrejon MD [facility] 06-13-2017 09:46-0400 Weight 100.97 kg Kim Castrejon MD [facility] 04-14-2010 13:17-0400 BMI (Body Mass Index) 44.39 kg/m2 Kim Castrejon MD [facility] 04-14-2010 13:17-0400 Body Temperature 97.3 [degF] Kim Castrejon MD [facility] 04-14-2010 13:17-0400 BP Diastolic 74 mm[Hg] Kim Castrejon MD [facility] 04-14-2010 13:17-0400 BP Systolic 119 mm[Hg] Kim Castrejon MD [facility] 04-14-2010 13:17-0400 Height 144.78 cm Kim Castrejon MD [facility] 04-14-2010 13:17040 Pulse (Heart Rate) 82 /min Kim Castrejon MD [facility] 04-14-2010 13:170400 Respiratory Rate 11 /min Kim Castrejon MD [facility] 04-14-2010 13:17040 Weight 92.72 kg Kim Castrejon MD [facility] Encounters Encounter Date Encounter Type Care Provider Facility Start: 10-11-2023 End: 10-12-2023 ambulatory ALIA CURRY Facility:[facility] Start: 09-29-2023 Refill Shanti Bishop APRN .PURCHASING ANALYST Work Phone: [facility] [place] Procedures Date Procedure Procedure Detail Performing Clinician Start: 09-07-2023 Ecg routine ecg w/least 12 lds i&r only [facility] Provider Start: 05-26-2023 STREP A MOLECULAR (POC) Sandrine Garcia APR N.EMPLOYMENT CASE MANAGER Work Phone: Start: 11-14-2022 COVID WITH FLUA+B, ROUTINE Alia Curry MD Work Phone: Start: 01-22-2022 Lipid 1996 panel - Serum or Plasma Shanti Bishop APRN.PURCHASING ANALYST Work Phone: Start: 03-25-2021 Mammography Alia Curry MD Work Phone: Start: 06-13-2017 Gynecologic examination Encounter for gynecological examination (general) (routine) with abnormal findings Kim Castrejon MD Start: 05-16-2017 End: 06-18-2017 Mammogram, screening Kim suresh MD Work Phone: Start: 05-16-2017 Screening mammography Mammographic screening for breast cancer Kim Castrejon MD Start: 04-14-2010 End: 04-14-2010 Follow Up Appt 3 months Merrill Gore MD Start: 04-12-2010 End: 04-12-2010 Assay of thyroid stimulating hormone tsh Merrill Gore MD Start: 04-12-2010 End: 04-12-2010 Thyroid stimulating hormone (TSH) Merrill Gore MD Plan of Treatment Date Care Activity Detail Author Start: 01-22-2027 Lipid 1996 panel - S ronni or Plasma Lipid Screening [facility] Start: 01-22-2027 LIPID SCREEN LIPID SCREEN [facility] Start: 09-08-2026 Diabetes Screening Diabetes Screenin g [facility] Start: 05-19-2025 DIABETES SCREEN DIABETES SCREEN [facility] Start: 09-07-2024 Annual PCP Team Chief Analytics Officer crystal Disease Visit Annual PCP Team Chronic Disease Visit [facility] Start: 09-07-2024 Covid-19 Vaccine (#1) Covid-19 Vacci ne (#1) [facility] Immunizations Immunization Date Immunization Notes Care Provider Fa cility 07-29-2021 influenza, injectabl e, quadrivalent, contains preservative Alia Curry MD Work Phone: [facility] 07-29-2021 influenza virus vacc ine, unspecified formulation Shanti Bishop APRN.CNP Work Phone: [facility] Payers Date Payer Category Payer Private Health Insurance [employer] A ETNA CHOICE POS II [id number] 2014-Present [phone] [address] [place] [address] POS [id number] 2014 Private Health Insurance [id number] 2014 Private Health Insurance [id number] Social History Date Type Detail Facility Start: 01-23-2012 Tobacco smoking stat us MTIS Never smoked tobacco [facility] Work Phone: Start: 01-19-2022 End: 09-07-2023 Alcohol intake Current non-drinker of alcohol (finding) [facility] Start: 01-17-2022 End: 11-14-2022 History SDOH Alcohol Frequency 3 [facility] Start: 01-17-2022 End: 11-14-2022 History SDOH Alcohol Std Drinks 1 [facility] Start: 01-17-2022 History SDOH Social Connections Phone 4 [facility] Start: 01-17-2022 History SDOH Social Connections Gnosticist 98 [facility] Start: 01-17-2022 End: 11-14-2022 History SDOH Physical Activity DPW 2 [facility] Start: 01-17-2022 End: 11-14-2022 History SDOH Financial 5 [facility] Start: 01-17-2022 History SDOH Housing Places Lived 0 [facility] Start: 1975 Sex Assigned At Not on file [facility] Start: 01-09-2022 End: 02-11-2022 Exposure to SARS-CoV-2 (event) Not sure [facility] Work Phone: Start: 05-09-2022 End: 05-19-2022 Exposure to SARS-CoV-2 (event) Unable to assess [facility] Start: 01-23-2012 Tobacco use and exposure Smoke less tobacco non-user [facility] Start: 11-14-2022 End: 03-22-2023 History of Social function [employer] Start: 11-14-2022 End: 03-22-2023 Social connection and isolation panel [facility] Do you belong to any clubs or organizations such as tenriism groups, unions, fraternal or athletic groups, or school groups? Yes [facility] Are you now , , , , never or living with a partner? [facility] How often to you hav e a drink containing alcohol? 2-4 times a month [facility] Average Number of Drinks Not on file [facility] How often do you hav e 6 or more drinks on 1 occasion? Less than monthly [facility] Do you feel stress - tense, restless, nervous, or anxious, or unable to sleep at night because your mind is troubled all the time - these days [OSQ] Not at all [facility] (I/We) worried johanna er (my/our) food would run out before (I/we) got money to buy more. Never true [facility] The food that (I/we) bought just didn't last, and (I/we) didn't have money to get more. Sometimes true [facility] In the past 12 month s, was there a time when you were not able to pay the mortgage or rent on time? No [facility] Clinical Notes 02-12-2012 to 10-11-2023 Telephone Encounter - Lyn Villagran E - 09/29/2023 11:26 AM Shanti Avalos APRN.PURCHASING ANALYST - 09/07/2023 2:29 PM ESTPatient InstructionsSandrine Garcia APRN.EMPLOYMENT CASE MANAGER - 05/26/2023 12:20 PM EDTPatient Instructions Note Date & Type Note Facility 10-11-2023 Note HNO ID: [id number] Author: Shanti Bishop APRN.ZOLTAN Service: ? Author Type: Nurse Practitioner Type: Progress Notes Filed: 10/11/2023 10:13 AM Note Text: CC: Patient presents with: Follow Up HPI Dianne Ross is a 48 year old female who presents today for follow up. Anxiety and Depression: Was started on prozac 4 weeks ago and tolerating well. Feels much improved on the prozac. Sleep: tired in the afternoon. Starts her day at 2AM and then around 1230 she will take about a 1/2 hour nap. Then goes to bed around 10-12 at night. Alcohol use: glass of wine once since starting prozac. Drug use: No Appetite: has had decreased appetite with prozac Suicidal Thoughts: No suicidal ideation, intent or plan Support: Comes from multiple sources including family Counseling: Yes, No further chest pain and feels this is most likely related to anxiety. ECHO did show mild LVH and small amount of diastolic dysfunction. EKG at last visit showing possible previous anterior infarct. Denies edema, shortness of breath, palpitations, or known exercise intolerance. Hypothroidism: Started regularly taking 4 weeks ago. Still with decreased energy but in now starting to lose weight with improvement of depression and anxiety. REVIEW OF SYSTEMS General: no fevers, no chills, no night sweats, no recurrent infections, no change in appetite, no change in energy, and no significant changes in weight Respiratory: no cough, no wheezing, no shortness of breath, no hemoptysis Cardiovascular: no chest pain, no chest pressure, no palpitations, and no swelling Neurologic: No headache, weakness, numbness, dizziness, memory loss, syncope. PAST MEDICAL HISTORY Diagnosis Date Grave's disease Other postablative hypothyroidism PAST SURGICAL HISTORY Procedure Laterality Date EXTRACTION, ERUPTED TOOTH OR EXPOSED ROOT (ELEVATION AND/OR FORCEPS REMOVAL) age 16 ALLERGIES Propylthiouracil and Tapazole [Methimazole] MEDICATIONS FLUoxetine (PROZAC) 20 mg capsule TAKE 1 CAPSULE BY MOUTH EVERY DAY hydrOXYzine HCl (ATARAX) 25 mg tablet Take 1 tablet by mouth three times a day as needed for anxiety. albuterol HFA (VENTOLIN HFA) 90 mcg/actuation inhaler Inhale 2 Puffs as instructed every 4 hours as needed for wheezing/shortness of breath. fluticasone (FLONASE) 50 mcg/actuation nasal spray Use 2 Sprays in each nostril once daily. Rinse mouth after use. cetirizine (ZYRTEC) 10 mg tablet Take 1 tablet by mouth once daily. predniSONE (DELTASONE) 10 mg tablet Take 40 mg x 3 days, 20 mg x 3 days, 10 mg x 3 days. Take with food, once daily in morning levothyroxine (SYNTHROID) 200 mcg tablet Take 1 tablet by mouth once daily. 6 days of the week except on Monday. TREMFYA 100 mg/mL AutoInjector 100 mL by INJECTION(UNSPECIFIED PARENTERAL ROUTES) route. CPAP Initiate Auto PAP @ 5-20 cm of water with humidification. Mask (per patient preference) optional chin strap (if indicated) , filters, tubing, humidifier and lifetime supplies. meloxicam (MOBIC) 15 mg tablet Take 1 tablet by mouth once daily. With food. FAMILY HISTORY Problem Relation Age of Onset Heart Mother leaky valve (mitral) Breast Cancer Mother Diabetes Father Type II Cancer Brother Cancer Daughter Leukemia (ALL) Diabetes Son Type I Depression Son Diabetes Maternal Uncle Diabetes Other pat female cousin Colon Cancer Other none Breast Cancer Other none Social History Tobacco Use Smoking status: Never Smokeless tobacco: Never Vaping Use Vaping Use: Never used Substance Use Topics Alcohol use: No Drug use: No PHYSICAL EXAM BP 136/70 (BP Site: Left Arm, BP Position: Sitting, BP Cuff Size: Large Adult) Pulse 73 Temp 36.7 ?C (98.1 ?F) Resp 12 Ht 170.2 cm (5' 7 ) Wt 104.3 kg (230 lb) LMP 02/08/2017 (Approximate) SpO2 97% BMI 36.02 kg/m? General Appearance: well appearing, in no acute distress, alert Pysch: mood and affect broad and appropriate Skin: Skin color, texture, turgor normal for age; Eyes: conjunctiva pink and moist, no icterus, sclera white, non-injected Lungs: Lungs clear to auscultation. No wheezing, rhonchi, rales. Heart: RRR without murmur, gallop, or rubs. No ectopy Health maintenance reviewed with patient: Hepatitis B Vaccine(1 of 3 - 3-dose series) Never done DTaP,Tdap,Td Vaccine(1 - Tdap) Never done Colorectal Cancer Screening Never done Pap Testing due on 03/02/2020 HPV Testing due on 03/02/2020 Mammogram Screening due on 03/25/2022 Influenza Vaccine(1) due on 06/30/2023 Shingrix Vaccine(1 of 2) Never done Covid-19 Vaccine(1) due on 09/07/2024 Annual PCP Team Chronic Disease Visit due on 09/07/2024 Diabetes Screening due on 09/08/2026 Lipid Screening due on 01/22/2027 Hepatitis C Screening Completed HIV Screening Completed DATA REVIEWED: Most recent labs ASSESSMENT/PLAN: 1. Anxiety and depression - ICD9: 300.00, 311, ICD10: F41.9, F32.A (primary diagn (more content not included)... [facility] 09-29-2023 Miscellaneous Notes Patient has been identified by name and date of : No Patient phones for refill(s): Requested Prescriptions Pending Prescriptions Disp Refills FLUoxetine (PROZAC) 20 mg capsule [Pharmacy Med Name: FLUOXETINE HCL 20 MG CAPSULE] 90 capsule 1 Sig: TAKE 1 CAPSULE BY MOUTH EVERY DAY Date of last office visit in primary care: 09/07/2023 Date of next office visit in primary care: 10/11/2023 Last 2 Encounter Wt Readings: Date: Wt: 09/07/2023 109.8 kg (242 lb) 05/26/2023 111.6 kg (246 lb) Previous labs/tests for medication: Not applicable Please advise. Thank you. Lyn Villagran. documented in this encounter [facility] 09-08-2023 Note HNO ID: [id number] Author: Daisy Ervin RT(R) Service: Radiology Author Type: Technologist Type: Progress Notes Filed: 09/08/2023 11:12 AM Note Text: Radiology Service Progress Note PATIENT NAME: Dianne Ross DATE OF SERVICE: September 08, 2023 TIME: 11:00 AM PATIENT IDENTITY VERIFICATION COMPLETED USING TWO (2) IDENTIFIERS: Name and Date of confirmed by patient verbally. FALL SCREENING: Has the patient had 2 falls in the last year or 1 fall with injury or currently using an Ambulatory Assistive Device (Walker, Cane, Wheelchair, Crutches, etc.)? No PATIENT GENDER DATA: Female. status: : No status: NO. PATIENT RELEVANT IMPLANT DATA REVIEWED: Not Applicable RADIOLOGY DEPARTMENT: General X-ray: Exam(s) Completed: Lower Extremity X-Ray(s): Foot, Right and Wt. Bearing PERIPHERAL IV DATA: Not applicable SIGNED BY: RT Allie(R) September 08, 2023 11:00 AM [facility] 09-07-2023 Note HNO ID: [id number] Author: Shanti Bishop APRN.PURCHASING ANALYST Service: ? Author Type: Nurse Practitioner Type: Progress Notes Filed: 09/11/2023 6:48 AM Note Text: CC: Patient presents with: Recheck: Thyroid Pain (foot): Right foot, stepped on by a Steer June Anxiety: X 1 month, stress HPI Dianne Ross is a 48 year old female who presents today for multiple concerns. A steer stepped on top of left foot 2 months ago. Has not had it evaluated yet. Was immediately swollen and bruised to right lateral side of foot and last 3 toes. Still with some pain but an odd pulling sensation to area when she steps. Denies decreased sensation, fever, chills, inability to bear weight or weakness. Hypothyoidism: Just started this week with trying to take her synthroid on a regular basis. Has been exhausted and gaining weight. Had an episode last week of chest tightness when very stressed aobut her things in her life right now and it eased when she cried. Denies shortness of breath, extremity edema, palpitations, chest pressure with exertion, or other concern. Depression and Anxiety: Feels very much uncontrolled at this time. Has a lot in her life with family at this time and is really struggling with making time to care for herself. Sleep: is described as normal Alcohol use: does not drink any alcohol Drug use: No Appetite: good Suicidal Thoughts: No suicidal ideation, intent or plan Support: Comes from multiple sources including daughter Counseling: No REVIEW OF SYSTEMS General: no fevers, no chills, no night sweats, no recurrent infections, no change in appetite, no change in energy, and no significant changes in weight Respiratory: no cough, no wheezing, no shortness of breath, no hemoptysis Cardiovascular: no palpitations and no swelling Endocrine: no polyuria, no polyphagia, and no polydipsia Neurologic: No headache, weakness, numbness, tingling, dizziness, memory loss, syncope. PAST MEDICAL HISTORY Diagnosis Date Grave's disease Other postablative hypothyroidism PAST SURGICAL HISTORY Procedure Laterality Date EXTRACTION, ERUPTED TOOTH OR EXPOSED ROOT (ELEVATION AND/OR FORCEPS REMOVAL) age 16 ALLERGIES Environmental [Other], Propylthiouracil, and Tapazole [Methimazole] MEDICATIONS cetirizine (ZYRTEC) 10 mg tablet Take 1 tablet by mouth once daily. levothyroxine (SYNTHROID) 200 mcg tablet Take 1 tablet by mouth once daily. 6 days of the week except on Monday. TREMFYA 100 mg/mL AutoInjector 100 mL by INJECTION(UNSPECIFIED PARENTERAL ROUTES) route. CPAP Initiate Auto PAP @ 5-20 cm of water with humidification. Mask (per patient preference) optional chin strap (if indicated) , filters, tubing, humidifier and lifetime supplies. meloxicam (MOBIC) 15 mg tablet Take 1 tablet by mouth once daily. With food. albuterol HFA (VENTOLIN HFA) 90 mcg/actuation inhaler Inhale 2 Puffs as instructed every 4 hours as needed for wheezing/shortness of breath. fluticasone (FLONASE) 50 mcg/actuation nasal spray Use 2 Sprays in each nostril once daily. Rinse mouth after use. predniSONE (DELTASONE) 10 mg tablet Take 40 mg x 3 days, 20 mg x 3 days, 10 mg x 3 days. Take with food, once daily in morning FAMILY HISTORY Problem Relation Age of Onset Heart Mother leaky valve (mitral) Breast Cancer Mother Diabetes Father Type II Cancer Brother Cancer Daughter Leukemia (ALL) Diabetes Son Type I Depression Son Diabetes Maternal Uncle Diabetes Other pat female cousin Colon Cancer Other none Breast Cancer Other none Social History Tobacco Use Smoking status: Never Smokeless tobacco: Never Vaping Use Vaping Use: Never used Substance Use Topics Alcohol use: No Drug use: No PHYSICAL EXAM BP 130/80 Pulse 77 Resp 16 Wt 109.8 kg (242 lb) LMP 02/08/2017 (Approximate) SpO2 96% BMI 37.90 kg/m? General Appearance: well appearing, in no acute distress, alert Pysch: mood and affect broad and appropriate Skin: Skin color, texture, turgor normal for age; Eyes: conjunctiva pink and moist, no icterus, sclera white, non-injected Neck: Thyroid normal size and symmetric without palpable nodules, Neck supple, No adenopathy Lymph nodes: No cervical lymphadenopathy and No supraclavicular lymphadenopathy Lungs: Lungs clear to auscultation. No wheezing, rhonchi, rales. Heart: RRR without murmur, gallop, or rubs. No ectopy Right foot. Trace edema and hyperpigmentation to left lateral side. Health maintenance reviewed with patient: Hepatitis B Vaccine(1 of 3 - 3-dose series) Never done DTaP,Tdap,Td Vaccine(1 - Tdap) Never done Colorectal Cancer Screening Never done Pap Testing due on 03/02/2020 HPV Testing due on 03/02/2020 Mammogram Screening due on 03/25/2022 Influenza Vaccine(1) due on 06/30/2023 Shingrix Vaccine(1 of 2) Never done Covid-19 Vaccine(1) due on 09/07/2024 Annual PCP Team Chronic Disease Visit due on 12/16/2023 Diabe (more content not included)... [facility] 09-07-2023 History of Presen t illness Narrative CC: Patient presents with: Recheck: Thyroid Pain (foot): Right foot, stepped on by a Steer June Anxiety: X 1 month, stress HPI Dianne Ross is a 48 year old female who presents today for multiple concerns. A steer stepped on top of left foot 2 months ago. Has not had it evaluated yet. Was immediately swollen and bruised to right lateral side of foot and last 3 toes. Still with some pain but an odd pulling sensation to area when she steps. Denies decreased sensation, fever, chills, inability to bear weight or weakness. Hypothyoidism: Just started this week with trying to take her synthroid on a regular basis. Has been exhausted and gaining weight. Had an episode last week of chest tightness when very stressed aobut her things in her life right now and it eased when she cried. Denies shortness of breath, extremity edema, palpitations, chest pressure with exertion, or other concern. Depression and Anxiety: Feels very much uncontrolled at this time. Has a lot in her life with family at this time and is really struggling with making time to care for herself. Sleep: is described as normal Alcohol use: does not drink any alcohol Drug use: No Appetite: good Suicidal Thoughts: No suicidal ideation, intent or plan Support: Comes from multiple sources including daughter Counseling: No REVIEW OF SYSTEMS General: no fevers, no chills, no night sweats, no recurrent infections, no change in appetite, no change in energy, and no significant changes in weight Respiratory: no cough, no wheezing, no shortness of breath, no hemoptysis Cardiovascular: no palpitations and no swelling Endocrine: no polyuria, no polyphagia, and no polydipsia Neurologic: No headache, weakness, numbness, tingling, dizziness, memory loss, syncope. PAST MEDICAL HISTORY Diagnosis Date Grave's disease Other postablative hypothyroidism PAST SURGICAL HISTORY Procedure Laterality Date EXTRACTION, ERUPTED TOOTH OR EXPOSED ROOT (ELEVATION AND/OR FORCEPS REMOVAL) age 16 ALLERGIES Environmental [Other], Propylthiouracil, and Tapazole [Methimazole] MEDICATIONS cetirizine (ZYRTEC) 10 mg tablet Take 1 tablet by mouth once daily. levothyroxine (SYNTHROID) 200 mcg tablet Take 1 tablet by mouth once daily. 6 days of the week except on Monday. TREMFYA 100 mg/mL AutoInjector 100 mL by INJECTION(UNSPECIFIED PARENTERAL ROUTES) route. CPAP Initiate Auto PAP @ 5-20 cm of water with humidification. Mask (per patient preference) optional chin strap (if indicated) , filters, tubing, humidifier and lifetime supplies. meloxicam (MOBIC) 15 mg tablet Take 1 tablet by mouth once daily. With food. albuterol HFA (VENTOLIN HFA) 90 mcg/actuation inhaler Inhale 2 Puffs as instructed every 4 hours as needed for wheezing/shortness of breath. fluticasone (FLONASE) 50 mcg/actuation nasal spray Use 2 Sprays in each nostril once daily. Rinse mouth after use. predniSONE (DELTASONE) 10 mg tablet Take 40 mg x 3 days, 20 mg x 3 days, 10 mg x 3 days. Take with food, once daily in morning FAMILY HISTORY Problem Relation Age of Onset Heart Mother leaky valve (mitral) Breast Cancer Mother Diabetes Father Type II Cancer Brother Cancer Daughter Leukemia (ALL) Diabetes Son Type I Depression Son Diabetes Maternal Uncle Diabetes Other pat female cousin Colon Cancer Other none Breast Cancer Other none Social History Tobacco Use Smoking status: Never Smokeless tobacco: Never Vaping Use Vaping Use: Never used Substance Use Topics Alcohol use: No Drug use: No PHYSICAL EXAM BP 130/80 Pulse 77 Resp 16 Wt 109.8 kg (242 lb) LMP 02/08/2017 (Approximate) SpO2 96% BMI 37.90 kg/m General Appearance: well appearing, in no acute distress, alert Pysch: mood and affect broad and appropriate Skin: Skin color, texture, turgor normal for age; Eyes: conjunctiva pink and moist, no icterus, sclera white, non-injected Neck: Thyroid normal size and symmetric without palpable nodules, Neck supple, No adenopathy Lymph nodes: No cervical lymphadenopathy and No supraclavicular lymphadenopathy Lungs: Lungs clear to auscultation. No wheezing, rhonchi, rales. Heart: RRR without murmur, gallop, or rubs. No ectopy Right foot. Trace edema and hyperpigmentation to left lateral side. Health maintenance reviewed with patient: Hepatitis B Vaccine(1 of 3 - 3-dose series) Never done DTaP,Tdap,Td Vaccine(1 - Tdap) Never done Colorectal Cancer Screening Never done Pap Testing due on 03/02/2020 HPV Testing due on 03/02/2020 Mammogram Screening due on 03/25/2022 Influenza Vaccine(1) due on 06/30/2023 Shingrix Vaccine(1 of 2) Never done Covid-19 Vaccine(1) due on 09/07/2024 Annual PCP Team Chronic Disease Visit due on 12/16/2023 Diabetes Screening due on 05/19/2025 Lipid Screening due on 01/22/2027 Hepatitis C Screening Completed HIV Screening Completed DATA REVIEWED: No new labs EKG Interpretation: RHYTHM: Normal sinus rhythm at 65 beats per minute, Possible Anterior Infarct AXIS: Normal axis INTERVALS: Normal NM interval QRS COMPLEX: Normal QT INTERVAL: Normal COMPARED WITH PRIOR: None available ASSESSMENT/PLAN: 1. Chest pain, unspecified type - ICD9: 786.50, ICD10: R07.9 (primary diagnosis) - no acute symptoms. Quite possibly result of uncontrolled anxiety but with abnormal EKG will further evaluate for cardiac cause - go to ER for chest pressure, shortness of breath, palpitations or other urgent concern. - follow up in 4 weeks. - CBC + DIFF - COMP METABOLIC PANEL - MAGNESIUM BLD - TSH BLD - T4 FREE/FREE THYROX - VITAMIN B12 BLOOD - ECHO - PERFLUTREN LIPID MICROSPHERES 1.1 MG/ML INJECTION IN NS 10 ML - SODIUM CHLORIDE 0.9 % (FLUSH) INJECTION SYRINGE 2. Right foot pain - ICD9: 729.5, ICD10: M79.671 - no deformities on exam - will xray for further evaluation - XR FOOT GENERAL 3V AP/LAT/OBL RIGHT 3. Acquired hypothyroidism - ICD9: 244.9, ICD10: E03.9 .- pt just starting to take medications regularly. - Instructed patient on importance of taking on an empty stomach either first thing in the morning or at bedtime. - TSH BLD - T4 FREE/FREE THYROX 4. Anxiety and depression - ICD9: 300.00, 311, ICD10: F41.9, F32.A - uncontrolled and untreated. Situation exacerbating underlying issue. Patient with living with her, daughter's upcoming wedding, and many other family pressures. - will start on fluoxetine daily and hydroxyzine as needed - Reviewed concept of neurochemical imbalance wth depression/anxiety, treatment options and benefits of counseling in combination with medication. Also reviewed benefits of sleep hygeine, diet and exercise - Follow-up in 4 weeks or sooner as needed - Instructed patient to contact office or [id number] after-hours promptly should condition worsen or any new symptoms appear. - Counseling Center [facility] and after hours crisis line 5. Abnormal ECG - ICD9: 794.31, ICD10: R94.31 See #1 - ECHO - PERFLUTREN LIPID MICROSPHERES 1.1 MG/ML INJECTION IN NS 10 ML - SODIUM CHLORIDE 0.9 % (FLUSH) INJECTION SYRINGE Prescription instructions reviewed with patient as applicable. Potential red flag symptoms discussed with the patient. Reviewed appropriate action plan to take if red flag symptoms occur. Patient agreeable to treatment plan. Shanti Bishop APRN.CNP documented in this encounter [facility] 05-26-2023 Note HNO ID: [id number] Author: Sandrine Garcia APRN.EMPLOYMENT CASE MANAGER Service: ? Author Type: Nurse Specialist Type: Progress Notes Filed: 05/26/2023 1:10 PM Note Text: SUBJECTIVE: HEPATITIS B(1 of 3 - 3-dose series) Never done COVID-19 VACCINE(1) Never done DTAP,TDAP,TD(1 - Tdap) Never done COLORECTAL CANCER SCREENING Never done PAP TESTING due on 03/02/2020 HPV TESTING due on 03/02/2020 MAMMOGRAM due on 03/25/2022 HPI Dianne Ross is a 47 year old female. PMH significant for ACTIVE PROBLEM LIST Other Postablative Hypothyroidism Obesity, Unspecified Nontoxic Uninodular Goiter Dysmetabolic Syndrome Depression PCP: Alia Curry MD Presents with report of symptoms x1 day. She notes her face is red and swollen and neck glands feel swollen. Feels like there is something in her throat. She notes waking up last night feeling short of breath and a sensation like she was choking. [place] the [place], reports she got she put antifungal product on her hands, perhaps on her face. Also notes that she opened a new container of dental appliance fixative yesterday and wore her general appliance through the night yesterday because she was tired. She reports no fever cough ear pain nasal drainage is present. No itchy or watery eyes. No new medication, food, travel, soaps lotions or clothing. No smoking, vaping or exposure to smoke yesterday at the fair. Review of Systems HENT: Positive for facial swelling and sore throat. Respiratory: Positive for shortness of breath. Objective BP 122/82 Pulse 64 Temp 36.4 ?C (97.6 ?F) Resp 16 Wt 111.6 kg (246 lb) LMP 02/08/2017 (Approximate) SpO2 100% BMI 38.53 kg/m? Physical Exam Vitals and nursing note reviewed. Constitutional: Appearance: Normal appearance. HENT: Head: Normocephalic and atraumatic. Comments: Face and neck are red and swollen Right Ear: Tympanic membrane and ear canal normal. Left Ear: Tympanic membrane and ear canal normal. Nose: Mucosal edema and rhinorrhea present. Mouth/Throat: Lips: [place]. Mouth: Mucous membranes are moist. Pharynx: Oropharynx is clear. Comments: Large tongue versus swollen Eyes: Conjunctiva/sclera: Conjunctivae normal. Cardiovascular: Rate and Rhythm: Normal rate and regular rhythm. Heart sounds: Normal heart sounds. Pulmonary: Effort: Pulmonary effort is normal. Breath sounds: Normal breath sounds. Lymphadenopathy: Cervical: Cervical adenopathy present. Right cervical: Superficial cervical adenopathy present. Left cervical: Superficial cervical adenopathy present. Skin: General: Skin is warm and dry. Neurological: Mental Status: She is alert. ALLERGIES Allergen Reactions Environmental [Othe* Propylthiouracil Hives Tapazole [[place]* Rash Medication levothyroxine (SYNTHROID) 200 mcg tablet Take 1 tablet by mouth once daily. 6 days of the week except on Monday. TREMFYA 100 mg/mL AutoInjector 100 mL by INJECTION(UNSPECIFIED PARENTERAL ROUTES) route. CPAP Initiate Auto PAP @ 5-20 cm of water with humidification. Mask (per patient preference) optional chin strap (if indicated) , filters, tubing, humidifier and lifetime supplies. meloxicam (MOBIC) 15 mg tablet Take 1 tablet by mouth once daily. With food. fluticasone (FLONASE) 50 mcg/actuation nasal spray Use 2 Sprays in each nostril once daily. Rinse mouth after use. (Patient not taking: Reported on 05/26/2023) albuterol HFA (VENTOLIN HFA) 90 mcg/actuation inhaler Inhale 2 Puffs as instructed every 4 hours as needed for wheezing/shortness of breath. (Patient not taking: Reported on 05/26/2023) PAST MEDICAL HISTORY Diagnosis Date Grave's disease Other postablative hypothyroidism Social History Tobacco Use Smoking status: Never Smokeless tobacco: Never Vaping Use Vaping Use: Never used Substance Use Topics Alcohol use: No Drug use: No ASSESSMENT/PLAN: 1. Facial swelling - ICD9: 784.2, ICD10: R22.0 (primary diagnosis) - CETIRIZINE 10 MG TABLET - PREDNISONE 10 MG TABLET 2. Sore throat - ICD9: 462, ICD10: J02.9 negative - RAPID STREP TEST B/O 3. Shortness of breath - ICD9: 786.05, ICD10: R06.02 - ALBUTEROL SULFATE HFA 90 MCG/ACTUATION AEROSOL INHALER - CETIRIZINE 10 MG TABLET - PREDNISONE 10 MG TABLET Strep infection versus angioedema. Negative strep in office. We will treat as angioedema. Provided with printed prescription for amoxicillin to take if she develops a fever or progressive sore throat. Recheck Monday. Advised Bathe your face with cool to warm water when you get home. Use fragrance free soap for bathing. Start taking cetirizine once daily.. Keep taking daily until feeling improved. Take prednisone daily in the morning with breakfast.OK to take first dose today when she receives it Take tapering dose until gone. Go to the emergency department for any severe or concerning symptoms. Sandrine Garcia APRN.[facility] Medical Dec (more content not included)... [facility] 05-26-2023 Instructions Sandrine Garcia APRN.CNS - 05/26/2023 12:53 PM EDT Bathe your face with cool to warm water when you get home. Use fragrance free soap for bathing. Start taking cetirizine once daily.. Keep taking daily until feeling improved. Take prednisone daily in the morning with breakfast. Take tapering dose until gone. Go to the emergency department for any severe or concerning symptoms. documented in this encounter [facility] 05-26-2023 History of Presen t illness Narrative SUBJECTIVE: HEPATITIS B(1 of 3 - 3-dose series) Never done COVID-19 VACCINE(1) Never done DTAP,TDAP,TD(1 - Tdap) Never done COLORECTAL CANCER SCREENING Never done PAP TESTING due on 03/02/2020 HPV TESTING due on 03/02/2020 MAMMOGRAM due on 03/25/2022 HPI Dianne Ross is a 47 year old female. PMH significant for ACTIVE PROBLEM LIST Other Postablative Hypothyroidism Obesity, Unspecified Nontoxic Uninodular Goiter Dysmetabolic Syndrome Depression PCP: Alia Curry MD Presents with report of symptoms x1 day. She notes her face is red and swollen and neck glands feel swollen. Feels like there is something in her throat. She notes waking up last night feeling short of breath and a sensation like she was choking. She [place] being at the [place], reports she got she put antifungal product on her hands, perhaps on her face. Also notes that she opened a new container of dental appliance fixative yesterday and wore her general appliance through the night yesterday because she was tired. She reports no fever cough ear pain nasal drainage is present. No itchy or watery eyes. No new medication, food, travel, soaps lotions or clothing. No smoking, vaping or exposure to smoke yesterday at the [facility]. Review of Systems HENT: Positive for facial swelling and sore throat. Respiratory: Positive for shortness of breath. Objective BP 122/82 Pulse 64 Temp 36.4 C (97.6 F) Resp 16 Wt 111.6 kg (246 lb) LMP 02/08/2017 (Approximate) SpO2 100% BMI 38.53 kg/m Physical Exam Vitals and nursing note reviewed. Constitutional: Appearance: Normal appearance. HENT: Head: Normocephalic and atraumatic. Comments: Face and neck are red and swollen Right Ear: Tympanic membrane and ear canal normal. Left Ear: Tympanic membrane and ear canal normal. Nose: Mucosal edema and rhinorrhea present. Mouth/Throat: Lips: [place]. Mouth: Mucous membranes are moist. Pharynx: Oropharynx is clear. Comments: Large tongue versus swollen Eyes: Conjunctiva/sclera: Conjunctivae normal. Cardiovascular: Rate and Rhythm: Normal rate and regular rhythm. Heart sounds: Normal heart sounds. Pulmonary: Effort: Pulmonary effort is normal. Breath sounds: Normal breath sounds. Lymphadenopathy: Cervical: Cervical adenopathy present. Right cervical: Superficial cervical adenopathy present. Left cervical: Superficial cervical adenopathy present. Skin: General: Skin is warm and dry. Neurological: Mental Status: She is alert. ALLERGIES Allergen Reactions Environmental [Othe* Propylthiouracil Hives Tapazole [[place]* Rash Medication levothyroxine (SYNTHROID) 200 mcg tablet Take 1 tablet by mouth once daily. 6 days of the week except on Monday. TREMFYA 100 mg/mL AutoInjector 100 mL by INJECTION(UNSPECIFIED PARENTERAL ROUTES) route. CPAP Initiate Auto PAP @ 5-20 cm of water with humidification. Mask (per patient preference) optional chin strap (if indicated) , filters, tubing, humidifier and lifetime supplies. meloxicam (MOBIC) 15 mg tablet Take 1 tablet by mouth once daily. With food. fluticasone (FLONASE) 50 mcg/actuation nasal spray Use 2 Sprays in each nostril once daily. Rinse mouth after use. (Patient not taking: Reported on 05/26/2023) albuterol HFA (VENTOLIN HFA) 90 mcg/actuation inhaler Inhale 2 Puffs as instructed every 4 hours as needed for wheezing/shortness of breath. (Patient not taking: Reported on 05/26/2023) PAST MEDICAL HISTORY Diagnosis Date Grave's disease Other postablative hypothyroidism Social History Tobacco Use Smoking status: Never Smokeless tobacco: Never Vaping Use Vaping Use: Never used Substance Use Topics Alcohol use: No Drug use: No ASSESSMENT/PLAN: 1. Facial swelling - ICD9: 784.2, ICD10: R22.0 (primary diagnosis) - CETIRIZINE 10 MG TABLET - PREDNISONE 10 MG TABLET 2. Sore throat - ICD9: 462, ICD10: J02.9 negative - RAPID STREP TEST B/O 3. Shortness of breath - ICD9: 786.05, ICD10: R06.02 - ALBUTEROL SULFATE HFA 90 MCG/ACTUATION AEROSOL INHALER - CETIRIZINE 10 MG TABLET - PREDNISONE 10 MG TABLET Strep infection versus angioedema. Negative strep in office. We will treat as angioedema. Provided with printed prescription for amoxicillin to take if she develops a fever or progressive sore throat. Recheck Monday. Advised Bathe your face with cool to warm water when you get home. Use fragrance free soap for bathing. Start taking cetirizine once daily.. Keep taking daily until feeling improved. Take prednisone daily in the morning with breakfast.OK to take first dose today when she receives it Take tapering dose until gone. Go to the emergency department for any severe or concerning symptoms. Sandrine Garcia APRN.CNS Medical Decision Making: Problems: Low: Acute, uncomplicated illness or injury Data: Unique test(s) ordered: 1 Risk: Moderate: Drug management Medical Decision Making Level: 3 - Low documented in this encounter [facility] 05-03-2023 Note Patient Outreach (IN TMMN) DIANNE ROSS ([id number]) 1975 F Date Time Provider Department 05/03/23 ALIA CURRY During your visit today, we recorded the following information about you: Allergies As of Date: 05/03/2023 Noted Allergy Reaction environmental [Other] 08/24/2005 PROPYLTHIOURACIL 08/24/2005 4 - Hives TAPAZOLE (METHIMAZOLE) 08/24/2005 2 - Rash Date Reviewed: 12/16/2022 Reviewed by: Lyn Montanez LPN - Fully Assessed Visit Diagnosis:Encounter for screening mammogram for breast cancer [Z12.31] Order(s):[facility] SCREENING [[id number]] Order #: [id number] FUTURE Prescriptions as of 05/08/2023 - levothyroxine (SYNTHROID) 200 mcg tablet Take 1 tablet by mouth once daily. 6 days of the week except on Monday. - TREMFYA 100 mg/mL AutoInjector 100 mL by INJECTION(UNSPECIFIED PARENTERAL ROUTES) route. - fluticasone (FLONASE) 50 mcg/actuation nasal spray Use 2 Sprays in each nostril once daily. Rinse mouth after use. - albuterol HFA (VENTOLIN HFA) 90 mcg/actuation inhaler Inhale 2 Puffs as instructed every 4 hours as needed for wheezing/shortness of breath. - CPAP Initiate Auto PAP @ 5-20 cm of water with humidification. Mask (per patient preference) optional chin strap (if indicated) , filters, tubing, humidifier and lifetime supplies. - meloxicam (MOBIC) 15 mg tablet Take 1 tablet by mouth once daily. With food. Problem List As Of Date 05/03/2023 Noted Resolved POSTABLAT HYPOTHYR NEC [E89.0] OBESITY NOS [E66.9] 11/07/2007 Nontoxic multinodular goiter [E04.2] 02/12/2012 02/12/2012 Nontoxic uninodular goiter [E04.1] 02/12/2012 Dysmetabolic syndrome [E88.81] 04/19/2012 Depression [F32.A] 10/01/2014 Encounter Status:Closed by MACHO CHANELUSER on 05/08/23 [facility] 12-23-2022 Miscellaneous Notes Patient notified. ----- Message from Alia Curry MD sent at 12/23/2022 12:02 PM EST ----- The blood counts are a little better. The thyroid is still showing that it is a little too much in your body. I think you should skip one day of the week and take only 6 days a week of the 200 mgs documented in this encounter [facility] 12-23-2022 Miscellaneous Notes patient notified and verbalized understanding. Lyn Montanez LPN Changing the way the patient takes her thyroid medication Holding for one day of the week Regards, Alia Curry MD documented in this encounter [facility] 12-16-2022 Note HNO ID: [id number] Author: Alia Curry MD Service: ? Author Type: Physician Type: Progress Notes Filed: 12/16/2022 1:35 PM Note Text: Reason for Visit Patient presents with: Follow Up: 1 month follow up-thyroid Dianne Ross is a 47 year old female who presents here today for Above Complaints.. Health Maintenance HEPATITIS B(1 of 3 - 3-dose series) MAMMOGRAM HPI She has ongoing bleeding from the uterus, is going to have a hysterectomy very soon. She is not sure when she is having it on Monday coming is the pre op. Hb is low she is on iron , but we need to recheck cbc. Patient is stressed out about a lot of things. She is stressed about the finances during the surgery time. Tsh is on the lower side, for the past month she has been taking her medication regularly and we may have to lower dose. Right now she is more calm, she is making herself calm. Sh tries to keep herself more calm because she tried to ignore people. Patient keeps herself in check and walks away when she needs to. She was advised to be try being more compliant with the sleep machine, she will work on it No problem-specific Assessment AND Plan notes found for this encounter. PAST MEDICAL HISTORY Diagnosis Date Grave's disease Other postablative hypothyroidism PAST SURGICAL HISTORY Procedure Laterality Date EXTRACTION, ERUPTED TOOTH OR EXPOSED ROOT (ELEVATION AND/OR FORCEPS REMOVAL) age 16 FAMILY HISTORY Problem Relation Age of Onset Heart Mother leaky valve (mitral) Breast Cancer Mother Diabetes Father Type II Cancer Brother Cancer Daughter Leukemia (ALL) Diabetes Son Type I Depression Son Diabetes Maternal Uncle Diabetes Other pat female cousin Colon Cancer Other none Breast Cancer Other none Social History Tobacco Use Smoking status: Never Smokeless tobacco: Never Vaping Use Vaping Use: Never used Substance Use Topics Alcohol use: No Drug use: No Past medical history, appointments, medications, allergies reviewed. Pertinent Lab/Diagnostic Studies are reviewed and discussed today Current Outpatient Medications: levothyroxine (SYNTHROID) 200 mcg tablet TREMFYA 100 mg/mL AutoInjector fluticasone (FLONASE) 50 mcg/actuation nasal spray albuterol HFA (VENTOLIN HFA) 90 mcg/actuation inhaler CPAP meloxicam (MOBIC) 15 mg tablet Review of Systems CONSTITUTIONAL: No fevers, chills night sweats, unintended weight loss CARDIOVASCULAR: No chest pain, dyspnea, palpitations, orthopnea, PND, ankle edema. PULM: No dyspnea, unexplained cough. GI: No dysphagia/odynophagia, problematic reflux, constipation, diarrhea, changes in stool habits, hematochezia, melena. : No new urinary complaints, including dysuria, gross hematuria or pyuria. NEURO: No new balance problems, peripheral weakness/paresthesias or numbness of concern. Physical Exam BP 126/60 (BP Site: Left Arm, BP Position: Sitting, BP Cuff Size: Large Adult) Pulse 79 Temp 37.1 ?C (98.7 ?F) Resp 12 Ht 170.2 cm (5' 7 ) Wt 104.8 kg (231 lb) LMP 02/08/2017 (Approximate) SpO2 99% BMI 36.18 kg/m? General appearance: Well appearing, alert, in no acute distress, well nourished. Skin: Skin color, texture, turgor normal, no suspicious rashes or lesions Head: Normocephalic, no masses, lesions, tenderness or abnormalities Eyes: Anicteric sclera. Pupils are equally round and reactive to light. Extraocular movements are intact. Lungs: Lungs clear to auscultation. No wheezing, rhonchi, rales Heart: RRR without murmur, gallop, or rubs. Extremities: No deformities, edema, skin discoloration, clubbing or cyanosis. Good capillary refill. ASSESSMENT/PLAN: 1. Acquired hypothyroidism - ICD9: 244.9, ICD10: E03.9 (primary diagnosis) May have to change the dose depending on where she is - TSH BLD - T4 FREE/FREE THYROX - T3 FREE BLD 2. Sleep apnea, unspecified type - ICD9: 780.57, ICD10: G47.30 Advice to cont with the sleep machine and be as compliant as possible 3. DUB (dysfunctional uterine bleeding) - ICD9: 626.8, ICD10: N93.8 Too much bleeding may make her be anemic Alia Curry MD [facility] 11-24-2022 Miscellaneous Notes Patient notified. Increased thyroid medication dose was rx to the patient. Thyroid labs to be done in 1 month. Regards, Alia Curry MD TC to patient who states she has been taking the medication consistently the entire month of October but believes there were a few missed doses before the beginning of the month. Please advise. Thank you. CARIE Ibrahim Dianne, Your TSH is gone up a little bit more and if you are taking her medications I would want to increase your thyroid medication. Please let me know if there have been any missed pills over the past week documented in this encounter [facility] 11-22-2022 Miscellaneous Notes Patient has been notified . Lyn Montanez LPN She is very anemic, cbc was the test done by binding cutter synthetic cloth. Patient needs to make sure her bleeding stops with the use of her medication or interventions from binding cutter synthetic [employer] Her tsh was mildy abnormal 7 months ago. Ordering new tests to get her thyroid levels. Alia Crum MD Patient had lab work ordered by [facility] and TSH is abnormal. Patient is wanting labs reviewed, please. Patient wonders if she needs to start medication. Please review and advise. Lyn Montanez LPN documented in this encounter [facility] 11-16-2022 Miscellaneous Notes Noted. Contacted patient and provider's message below was reviewed. Pt verbalized understanding. Pt current condition includes: Denies feeling disoriented. Temp was 102.0 this morning. She took tylenol at 5am and temp came down to 101.0. 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 Castrejon, and has been prescribed medication that has stopped her bleeding. She will be seeing Gynecology on 11/21/22. Pt reports she does not have any extreme weakness and walking okay. Feels really tired and states her back aches between her shoulder blades and down this morning. She denies any SOB or chest pain but states when she lies in her left side, her heart area feels funny, but it does not do this when lying on her right side. Informed pt that PCP would be updated of this information and pt would be called back if provider has other instructions. Thank you. Dianne, You seem to be having a uti for sure.and you are severely anemic from the bleeding. I am sending her a strong medication as she has fevers that are pretty high. This may be the cause of her fevers If she is disoriented or not feeling up to it, she may need to go to the Er. She needs to drink a lot , a lot of fluids. We are awaiting culture Also will have to get her binding cutter synthetic cloth to address the bleeding as it has not really stopped completely. Who is her binding cutter synthetic cloth? Regards, Alia Curry MD documented in this encounter [facility] 11-15-2022 Miscellaneous Notes Placed call to patient with no answer. Voicemail verified. Left detailed message informing her of neg results and to call back with any questions or concerns. Rebecca Santacruz ----- Message from Alia Curry MD sent at 11/15/2022 6:52 AM EST ----- The flu a and flu b are negative so is covid Regards, Alia Curry MD documented in this encounter [facility] 11-15-2022 Miscellaneous Notes VM left for pt updating her of lab orders placed. Instructed pt to call PCP office if has any further questions or concerns. Kirsten Hardy RN Please let patient know that labs have been ordered along with urine. Regards, Alia Curry MD documented in this encounter [facility] 11-14-2022 Influenza virus A and B RNA and SARS-CoV-2 (COVID-19) N gene panel YAYA+probe (Resp) COVID 19 RESULT: SARS-CoV-2 (Agent of COVID-19) Not Detected by RT-PCR or equivalent method. This test was developed and its performance characteristics determined by [facility]'s [facility]. This test has been authorized by FDA under an Emergency Use Authorization (EUA). This test has been validated in accordance with the FDA's Guidance Document Policy for Diagnostics Testing in Laboratories Certified to Perform High Complexity Testing under CLIA prior to Emergency use Authorization for Coronavirus Disease 2019 during the Public Health Emergency issued on December 28, 2019. Test performed by [facility], [facility] [place], [address] [place] [address]. INFLUENZA A PCR: Negative for Influenza A by RT-PCR INFLUENZA B PCR: Negative for Influenza B by RT-PCR [facility] documented as of this encounter (statuses as of 01/20/2022) [facility] History of Past illness Narrative* Problem Noted Date Resolved Date Nontoxic multinodular 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 documented as of this encounter (statuses as of 01/25/2022) [facility] History of Past illness Narrative* Problem Noted Date Resolved Date Nontoxic multinodular 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 documented as of this encounter (statuses as of 02/11/2022) [address]15-2012 History of Past illness Narrative* Problem Noted Date Resolved Date Nontoxic multinodular 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 documented as of this encounter (statuses as of 05/09/2022) [address]15[address]2012 History of Past illness Narrative* Problem Noted Date Resolved Date Nontoxic multinodular 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 documented as of this encounter (statuses as of 05/19/2022) [address]15[address]2012 History of Past illness Narrative* Problem Noted Date Resolved Date Nontoxic multinodular 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 documented as of this encounter (statuses as of 05/20/2022) [address]2012 History of Past illness Narrative* Problem Noted Date Resolved Date Nontoxic multinodular 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 documented as of this encounter (statuses as of 05/20/2022) [address]2012 History of Past illness Narrative* Problem Noted Date Resolved Date Nontoxic multinodular 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 documented as of this encounter (statuses as of 05/31/2022) [address]2012 History of Past illness Narrative* Problem Noted Date Resolved Date Nontoxic multinodular 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 documented as of this encounter (statuses as of 06/29/2022) [address]2012 History of Past illness Narrative* Problem Noted Date Resolved Date Nontoxic multinodular 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 documented as of this encounter (statuses as of 08/19/2022) [address]2012 History of Past illness Narrative* Problem Noted Date Resolved Date Nontoxic multinodular 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 documented as of this encounter (statuses as of 08/24/2022) [address]2012 History of Past illness Narrative* Problem Noted Date Resolved Date Nontoxic multinodular 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 documented as of this encounter (statuses as of 09/12/2022) [address]2012 History of Past illness Narrative* Problem Noted Date Resolved Date Nontoxic multinodular 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 documented as of this encounter (statuses as of 09/15/2022) [address]2012 History of Past illness Narrative* Problem Noted Date Resolved Date Nontoxic multinodular 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 documented as of this encounter (statuses as of 11/14/2022) [address]2012 History of Past illness Narrative* Problem Noted Date Resolved Date Nontoxic multinodular 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 documented as of this encounter (statuses as of 11/14/2022) [address]2012 History of Past illness Narrative* Problem Noted Date Resolved Date Nontoxic multinodular 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 documented as of this encounter (statuses as of 11/15/2022) [address]2012 History of Past illness Narrative* Problem Noted Date Resolved Date Nontoxic multinodular 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 documented as of this encounter (statuses as of 11/17/2022) [address]2012 History of Past illness Narrative* Problem Noted Date Resolved Date Nontoxic multinodular 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 documented as of this encounter (statuses as of 11/22/2022) [address]2012 History of Past illness Narrative* Problem Noted Date Resolved Date Nontoxic multinodular 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 documented as of this encounter (statuses as of 11/24/2022) [address]2012 History of Past illness Narrative* Problem Noted Date Resolved Date Nontoxic multinodular 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 documented as of this encounter (statuses as of 12/23/2022) [address]2012 History of Past illness Narrative* Problem Noted Date Resolved Date Nontoxic multinodular 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 documented as of this encounter (statuses as of 12/23/2022) [address]2012 History of Past illness Narrative* Problem Noted Date Diagnosed Date Resolved Date Nontoxic multinodular 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 02/12/2012 documented as of this encounter (statuses as of 05/08/2023) [address]2012 History of Past illness Narrative* Problem Noted Date Diagnosed Date Resolved Date Nontoxic multinodular 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 02/12/2012 documented as of this encounter (statuses as of 05/26/2023) [facility] History of Past illness Narrative* Problem Noted Date Diagnosed Date Resolved Date Nontoxic multinodular 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 02/12/2012 documented as of this encounter (statuses as of 09/11/2023) [address]2012 History of Past illness Narrative* Problem Noted Date Diagnosed Date Resolved Date Nontoxic multinodular 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 02/12/2012 documented as of this encounter (statuses as of 09/29/2023) [facility] note* Diagnosis Obstructive sleep apnea syndrome- Primary Obstructive sleep apnea (adult) (pediatric) Hypothyroidism, unspecified type Falling hair Alopecia, unspecified Acute pain of right knee Patellar bursitis of right knee [facility] Diagnosis Right knee pain, unspecified chronicity- Primary [facility] Diagnosis Acute pain of right knee [facility]* Diagnosis Encounter for screening mammogram for breast cancer [facility]* Diagnosis Obstructive sleep apnea syndrome- Primary Obstructive sleep apnea (adult) (pediatric) Other fatigue Psoriasis with arthropathy (HCC) Psoriatic arthropathy Acquired hypothyroidism Unspecified hypothyroidism Dysmetabolic syndrome Dysmetabolic Syndrome X [facility] Diagnosis Acquired hypothyroidism Unspecified hypothyroidism [facility]* Diagnosis Acute cough- Primary Shortness of breath Chest pain, unspecified type Acute otitis media, unspecified otitis media type Acute non-recurrent maxillary sinusitis Obstructive sleep apnea syndrome Obstructive sleep apnea (adult) (pediatric) [facility] Diagnosis Acute non-recurrent maxillary sinusitis [facility] Diagnosis Shortness of breath [facility] Diagnosis Viral infection- Primary Unspecified viral infection, in conditions classified elsewhere and of unspecified site Nonintractable headache, unspecified chronicity pattern, unspecified headache type Body aches Generalized pain documented in this encounter [facility] note* Diagnosis Fever, unspecified fever cause- Primary Dysuria documented in this encounter [facility] note* Diagnosis Acquired hypothyroidism- Primary Unspecified hypothyroidism documented in this encounter [facility] note* Diagnosis Acquired hypothyroidism- Primary Unspecified hypothyroidism documented in this encounter [facility] note* Diagnosis Acquired hypothyroidism Unspecified hypothyroidism documented in this encounter [facility] note* Diagnosis Encounter for screening mammogram for breast cancer documented in this encounter [facility] note* Diagnosis Facial swelling- Primary Swelling, mass, or lump in head and neck Sore throat Acute pharyngitis Shortness of breath Acute non-recurrent maxillary sinusitis documented in this encounter [facility] note* Diagnosis Chest pain, unspecified type- Primary Right foot pain Pain in limb Acquired hypothyroidism Unspecified hypothyroidism Anxiety and depression Dysthymic disorder Abnormal ECG Nonspecific abnormal electrocardiogram (ECG) (EKG) documented in this encounter [facility] for referral (narrative)* Diagnostic Procedure Only (Routine) - Pending Review Specialty Diagnoses / Procedures Referred By Mansi marino Referred To Contact XR IMAGING Diagnoses Right knee pain, unspecified chronicity Procedures XR KNEE GENERAL 4V AP BOTH/PA BOTH/LAT/MERC RIGHT RADIOLOGIC EXAM KNEE COMPLETE 4/MORE VIEWS Fernando Zimmer V, DO [address] [place] [address] Xr Imaging Referral ID Status Reason Start Date Expiration Date Visits Requested Visits Authorized [id number] Pending Review Auto-Generat ed Referral 01/25/2022 02/24/2023 [facility] Diagnostic Procedure Only (Routine) - Pending Review Specialty Diagnoses / Procedures Referred By Mansi marino Referred To Contact [facility] Diagnoses Encounter for screening mammogram for breast cancer Procedures ALLISON SCREENING SCREENING MAMMOGRAPHY BI 2-VIEW BREAST INC Alia Goetz MD [address] [place] [address] [facility] [address] [place] [address] Referral ID Status Reason Start Date Expiration Date Visits Requested Visits Authorized [id number] Pending Review Auto-Generat ed Referral 05/04/2022 06/03/2023 1 1 [facility] for referral (narrative)* Diagnostic Procedure Only (Routine) - Pending Review Specialty Diagnoses / Procedures Referred By Natalieac t Referred To Contact [facility] IM[facility] Diagnoses Encounter for screening mammogram for breast cancer Procedures ALLISON SCREENING SCREENING MAMMOGRAPHY BI 2-VIEW BREAST INC Alia Goetz MD [address] [place] [address] [facility] [address] [place] [address] Referral ID Status Reason Start Date Expiration Date Visits Requested Visits Authorized [id number] Pending Review Auto-Generat ed Referral 05/03/2023 06/01/2024 1 1 [facility] for referral (narrative)* Outpatient Procedure (Routine) - Authorized Specialty Diagnoses / Procedures Referred By Contac t Referred To Contact [facility] Diagnoses Chest pain, unspecified type Abnormal ECG Procedures ECHO ECHO TTHRC R-T 2D W/WOM-MODE COMPL SPEC&COLR D Shanti Bishop APRN.PURCHASING ANALYST [address] [place] [address] [facility] [address] [place] [address] Referral ID Status Reason Start Date Expiration Date Visits Requested Visits Authorized [id number] Authorized Auto-Generat ed Referral 09/07/2023 09/06/2024 1 1 * Diagnostic Procedure Only (Routine) - Closed Specialty Diagnoses / Procedures Referred By Contac t Referred To Contact XR IMAGING Diagnoses Right foot pain Procedures XR FOOT GENERAL 3V AP/LAT/OBL RIGHT RADEX FOOT COMPLETE MINIMUM 3 VIEWS Shanti Bishop APRN.PURCHASING ANALYST [address] [place] [address] [place] [id number] Referral ID Status Reason Start Date Expiration Date V isits Requested Visits Authorized [id number] Closed Auto-Generate d Referral 09/07/2023 10/06/2024 1 1 [facility] Reason for Referral Specialty Diagnoses / Procedures Referred By Mansi t Referred To Contact Orthopedics Diagnoses Acute pain of right knee Procedures CONSULT TO ORTHOPAEDICS OFFICE/OUTPATIENT NEW HIGH MDM 60-74 MINUTES Alia Curry MD [address] [place] [address] Referral ID Status Reason Start Date Expiration Date Visits Requested Visits Authorized [id number] Pending Review PCP Requested Referral 01/19/2022 01/19/2023 1 1 Health Concerns Infection Onset Date Last Indicated Resolved Time COVID-19 Confirmed 08/19/2022 08/19/2022 Summary Purpose Family History No Family History Records Found Advance Directives No Advanced Directives Records Found Additional Source Comments Source Comments (unrecognize d section and content) In the event this informatio n is protected by the Federal Confidentiality of Alcohol and Drug Abuse Patient Records regulations: The Federal rules restrict any use of the information to criminally investigate or prosecute any alcohol or drug abuse patient.[facility] the event this information is protected by the Federal Confidentiality of Alcohol and Drug Abuse Patient Records regulations: The Federal rules restrict any use of the information to criminally investigate or prosecute any alcohol or drug abuse patient.[facility] CenterIn the event this information is protected by the Federal Confidentiality of Alcohol and Drug Abuse Patient Records regulations: The Federal rules restrict any use of the information to criminally investigate or prosecute any alcohol or drug abuse patient.[facility] CenterIn the event this information is protected by the Federal Confidentiality of Alcohol and Drug Abuse Patient Records regulations: The Federal rules restrict any use of the information to criminally investigate or prosecute any alcohol or drug abuse patient.[facility] CenterIn the event this information is protected by the Federal Confidentiality of Alcohol and Drug Abuse Patient Records regulations: The Federal rules restrict any use of the information to criminally investigate or prosecute any alcohol or drug abuse patient.[facility] CenterIn the event this information is protected by the Federal Confidentiality of Alcohol and Drug Abuse Patient Records regulations: The Federal rules restrict any use of the information to criminally investigate or prosecute any alcohol or drug abuse patient.[facility] CenterIn the event this information is protected by the Federal Confidentiality of Alcohol and Drug Abuse Patient Records regulations: The Federal rules restrict any use of the information to criminally investigate or prosecute any alcohol or drug abuse patient.[facility] CenterIn the event this information is protected by the Federal Confidentiality of Alcohol and Drug Abuse Patient Records regulations: The Federal rules restrict any use of the information to criminally investigate or prosecute any alcohol or drug abuse patient.[facility] CenterIn the event this information is protected by the Federal Confidentiality of Alcohol and Drug Abuse Patient Records regulations: The Federal rules restrict any use of the information to criminally investigate or prosecute any alcohol or drug abuse patient.[facility] CenterIn the event this information is protected by the Federal Confidentiality of Alcohol and Drug Abuse Patient Records regulations: The Federal rules restrict any use of the information to criminally investigate or prosecute any alcohol or drug abuse patient.[facility] CenterIn the event this information is protected by the Federal Confidentiality of Alcohol and Drug Abuse Patient Records regulations: The Federal rules restrict any use of the information to criminally investigate or prosecute any alcohol or drug abuse patient.[facility] CenterIn the event this information is protected by the Federal Confidentiality of Alcohol and Drug Abuse Patient Records regulations: The Federal rules restrict any use of the information to criminally investigate or prosecute any alcohol or drug abuse patient.[facility] CenterIn the event this information is protected by the Federal Confidentiality of Alcohol and Drug Abuse Patient Records regulations: The Federal rules restrict any use of the information to criminally investigate or prosecute any alcohol or drug abuse patient.[facility] CenterIn the event this information is protected by the Federal Confidentiality of Alcohol and Drug Abuse Patient Records regulations: The Federal rules restrict any use of the information to criminally investigate or prosecute any alcohol or drug abuse patient.[facility] CenterIn the event this information is protected by the Federal Confidentiality of Alcohol and Drug Abuse Patient Records regulations: The Federal rules restrict any use of the information to criminally investigate or prosecute any alcohol or drug abuse patient.[facility] CenterIn the event this information is protected by the Federal Confidentiality of Alcohol and Drug Abuse Patient Records regulations: The Federal rules restrict any use of the information to criminally investigate or prosecute any alcohol or drug abuse patient.[facility] CenterIn the event this information is protected by the Federal Confidentiality of Alcohol and Drug Abuse Patient Records regulations: The Federal rules restrict any use of the information to criminally investigate or prosecute any alcohol or drug abuse patient.[facility] CenterIn the event this information is protected by the Federal Confidentiality of Alcohol and Drug Abuse Patient Records regulations: The Federal rules restrict any use of the information to criminally investigate or prosecute any alcohol or drug abuse patient.[facility] CenterIn the event this information is protected by the Federal Confidentiality of Alcohol and Drug Abuse Patient Records regulations: The Federal rules restrict any use of the information to criminally investigate or prosecute any alcohol or drug abuse patient.[facility] CenterIn the event this information is protected by the Federal Confidentiality of Alcohol and Drug Abuse Patient Records regulations: The Federal rules restrict any use of the information to criminally investigate or prosecute any alcohol or drug abuse patient.[facility] CenterIn the event this information is protected by the Federal Confidentiality of Alcohol and Drug Abuse Patient Records regulations: The Federal rules restrict any use of the information to criminally investigate or prosecute any alcohol or drug abuse patient.[facility] CenterIn the event this information is protected by the Federal Confidentiality of Alcohol and Drug Abuse Patient Records regulations: The Federal rules restrict any use of the information to criminally investigate or prosecute any alcohol or drug abuse patient.[facility] CenterIn the event this information is protected by the Federal Confidentiality of Alcohol and Drug Abuse Patient Records regulations: The Federal rules restrict any use of the information to criminally investigate or prosecute any alcohol or drug abuse patient.[facility] CenterIn the event this information is protected by the Federal Confidentiality of Alcohol and Drug Abuse Patient Records regulations: The Federal rules restrict any use of the information to criminally investigate or prosecute any alcohol or drug abuse patient.[facility] CenterIn the event this information is protected by the Federal Confidentiality of Alcohol and Drug Abuse Patient Records regulations: The Federal rules restrict any use of the information to criminally investigate or prosecute any alcohol or drug abuse patient.[facility] CenterIn the event this information is protected by the Federal Confidentiality of Alcohol and Drug Abuse Patient Records regulations: The Federal rules restrict any use of the information to criminally investigate or prosecute any alcohol or drug abuse patient.[facility] Reason for Visit (unrecogniz ed section and content) Reason Comments New Patient Right knee pain REF: Lora Specialty Diagnoses / Procedures Referred By Mansi marino Referred To Contact Orthopedics Diagnoses Acute pain of right knee Procedures CONSULT TO ORTHOPAEDICS OFFICE/OUTPATIENT NEW HIGH MDM 60-74 MINUTES Alia Curry MD [address] [place] [address] Referral ID Status Reason Start Date Expiration Date Visits Requested Visits Authorized [id number] Pending Review PCP Requested Referral 01/19/2022 01/19/2023 1 1 Reason Comments Recheck 3 month follow up Reason Comments Results Reason Comments Results Last OV note Reason Onset Date Comments Refill Request 06/28/2022 Reason Comments Recheck Month follow up Reason Comments Refill Request Reason Comments Same Day Appointment wants tamiflu Reason Comments Patient Update Reason Comments Sore Throat Reason Comments Recheck Thyroid Pain (foot) Right foot, stepped on by a Steer June Anxiety X 1 month, stress Reason Comments Med Change Request Care Teams (unrecognized sec tion and content) Linux System Administrator Relationship Specialty Start Date End Date Alia Curry MD [address], [place] [id number] PCP - General Internal Medicine 03/26/21 Linux System Administrator Relationship Specialty Start Date End Date Alia Curry MD [address], [place] [id number] PCP - General Internal Medicine 03/26/21 Linux System Administrator Relationship Specialty Start Date End Date Alia Curry MD [address], [place] [id number] PCP - General Internal Medicine 03/26/21 Linux System Administrator Relationship Specialty Start Date End Date Alia Curry MD [address] [place] [address] PCP - General Internal Medicine 03/26/21 Linux System Administrator Relationship Specialty Start Date End Date Alia Curry MD [address] [place] [address] PCP - General Internal Medicine 03/26/21 Linux System Administrator Relationship Specialty Start Date End Date Alia Curry MD [address] [place] [address] PCP - General Internal Medicine 03/26/21 Linux System Administrator Relationship Specialty Start Date End Date Alia Curry MD [address] [place] [address] PCP - General Internal Medicine 03/26/21 Linux System Administrator Relationship Specialty Start Date End Date Alia Curry MD [address] [place] [address] PCP - General Internal Medicine 03/26/21 Linux System Administrator Relationship Specialty Start Date End Date Alia Curry MD [address] [place] [address] PCP - General Internal Medicine 03/26/21 Linux System Administrator Relationship Specialty Start Date End Date Alia Curry MD [address] [place] [address] PCP - General Internal Medicine 03/26/21 Linux System Administrator Relationship Specialty Start Date End Date Alia Curry MD [address] [place] [address] PCP - General Internal Medicine 03/26/21 Linux System Administrator Relationship Specialty Start Date End Date Alia Curry MD [address] [place] [address] PCP - General Internal Medicine 03/26/21 Linux System Administrator Relationship Specialty Start Date End Date Alia Curry MD [address] [facility] [place] [address] PCP - General Internal Medicine 03/26/21 Linux System Administrator Relationship Specialty Start Date End Date Alia Curry MD [address] [facility] [place] [address] PCP - General Internal Medicine 03/26/21 Linux System Administrator Relationship Specialty Start Date End Date Alia Curry MD [address] [facility] [place] [address] PCP - General Internal Medicine 03/26/21 Linux System Administrator Relationship Specialty Start Date End Date Alia Curry MD [address] [facility] [place] [address] PCP - General Internal Medicine 03/26/21 Linux System Administrator Relationship Specialty Start Date End Date Alia Curry MD [address] [facility] [place] [address] PCP - General Internal Medicine 03/26/21 Linux System Administrator Relationship Specialty Start Date End Date Alia Curry MD [address] [facility] [place] [address] PCP - General Internal Medicine 03/26/21 Linux System Administrator Relationship Specialty Start Date End Date Alia Curry MD [address] [facility] [place] [address] PCP - General Internal Medicine 03/26/21 INFORMATION SOURCE (unrecogn ized section and content) FOR RECORDS PERTAINING TO PATIENTS WHO ARE OR HAVE BEEN ENROLLED IN A CHEMICAL DEPENDENCY/SUBSTANCEABUSE PROGRAM, SOME INFORMATION MAY BE OMITTED. This clinical summary was aggregated from multiple sources. Caution should be exercised in using it in the provision of clinical care. This summary normalizes information from multiple sources, and as a consequence, information in this document may materially change the coding, format and clinical context of patient data. In addition, data may be omitted in some cases. CLINICAL DECISIONS SHOULD BE BASED ON THE PRIMARY CLINICAL RECORDS. [facility] [email or web address] [facility]. provides no warranty or guarantee of the accuracy or completeness of information in this document.
[2023-11-09 07:43] VITALS: BP 115/69; BP 125/80; BP 139/51; PULSE 82; PULSE 85; PULSE 87
[2023-11-09 08:17] VITALS: BP 122/57; PULSE 77; RESP 18; O2SAT 94
== END 2023-11-09 08:21 | disposition home or self-care (01) ==
PROVIDERS: Emergency Provider Emergency Medicine; PCP Nurse Practitioner; Visit Provider Emergency Medicine
DX: S16.1XXA Strain of muscle, fascia and tendon at neck level, initial encounter (principal); R55 Syncope and collapse; F41.9 Anxiety disorder, unspecified; E07.9 Disorder of thyroid, unspecified; Z79.899 Other long term (current) drug therapy; X58.XXXA Exposure to other specified factors, initial encounter
CPT/HCPCS: 71045; 80048; 84484; 85025; 93005; 99285

== ENCOUNTER → 2023-12-15 | Outpatient (CLI) | payer OTHER, SELFPAY ==
--- NOTE | 2023-12-15 09:57 | BI_ITS ---
MAMMOGRAPHY - BILATERAL SCREENING REASON FOR EXAM: Female, 48 years old. Routine annual screening examination. PERTINENT HISTORY: Mother with breast cancer. TECHNIQUE: Digital bilateral breast eduard (3D mammographic acquisition) in the CC and MLO projections. 2-D mediolateral oblique (MLO) and craniocaudad (CC) views of both breasts were obtained. CAD: Full Field Digital Mammography with Computer Added Detection was performed. COMPARISON: Comparison is made with prior study dated November 22, 2022 and March 25, 2021. FINDINGS: Breast Composition: The breasts are heterogeneously dense, which may obscure small masses. There are no dominant masses or suspicious calcifications. Stable benign appearing bilateral axillary lymph nodes. No other significant abnormalities are identified. There has been no significant change since the prior study. BI/SCRN MAMM (CAD)W/EDUARD BILAT IMPRESSION: Stable bilateral screening mammogram. Yearly follow-up mammogram recommended. (A) ASSESSMENT CATEGORY: BIRADS Category 2: Benign. A letter regarding these results will be sent to the patient by the facility within 30 days. Approximately 10% of breast cancers are not detected by mammography. A normal mammogram should not delay biopsy of a clinically suspicious abnormality. [id number] Electronically Signed: Claudio Isbell MD at 11:16 EST ,
--- OUTSIDE RECORDS SUMMARY | 2023-12-15 10:18 | XMS RPT_ITS | CCD ---
Author Name Unknown Address [address] [place] [address] Organization [facility] Care Team Providers Care Drawing Box Tender Name Role Phone Sonya Heredia Unavailable Unavailab Kim Calle MD Unavailable [phone] Kim Castrejon MD Unavailable [phone] Sonya Heredia Unavailable Unavailab Alia Dos Santos MD Primary Care Provider Alia Curry MD Primary Care Provider Alia Curry MD Primary Care Provider Alia Curry MD Primary Care Provider [phone] OLDER, SHANTI Referring Unavailable GANTA, ALIA Primary [...] Date of Onset Reaction(s) Facility (5 sources) [facility] drug allergy 7 [facility] (20 sources) methIMAzole; Translations: [METHIMAZOLE] Drug Allergy 5 Rash [facility] Work Phone: (20 sources) Propylthiouracil; Translations: [PROPYLTHIOURACIL ] Drug Allergy 5 Hives [facility] Work Phone: (20 sources) environmental [Other] Propensity to adverse reactions 5 [facility] Work Phone: (1 source) OTHER; Translations: [OTHER] Propensity to adverse reactions (disorder) 5 [facility] Repository Medications Current Medications Medication Drug Class(es) [...] Drug Class(es) Dates Sig (Normalized) Sig (Original) [id number] 200 actuat albuterol 0.09 mg/actuat metered dose [...] 14:24-0500 Body weight 109.77 kg Shanti Older [employer] BUSINESS ANALYST.MUNICIPAL MAINTENANCE WORKER Work Phone: [facility] 09-07-2023 14:24-0500 Diastolic blood pressure 80 mm[Hg] Shanti Older [employer] BUSINESS ANALYST.MUNICIPAL MAINTENANCE WORKER Work Phone: [facility] 09-07-2023 14:24-0500 Heart rate 77 /min Shanti Older [employer] BUSINESS ANALYST.MUNICIPAL MAINTENANCE WORKER Work Phone: [facility] 09-07-2023 14:24-0500 Respiratory rate 16 /min Shanti Older [employer] BUSINESS ANALYST.MUNICIPAL MAINTENANCE WORKER Work Phone: [facility] 09-07-2023 14:24-0500 SaO2% (BldA) [Mass fraction] 96 % Shanti Older [employer] BUSINESS ANALYST.MUNICIPAL MAINTENANCE WORKER Work Phone: [facility] 09-07-2023 14:24-0500 Systolic blood pressure 130 mm[Hg] Shanti Older [employer] BUSINESS ANALYST.MUNICIPAL MAINTENANCE WORKER Work Phone: [facility] 05-26-2023 12:18-0400 Body temperature 97.59 [degF] Sandrine Garcia [employer] BUSINESS ANALYST.FORESTRY SUPERVISOR Work Phone: [facility] 05-26-2023 12:18-0400 Body weight 111.58 kg Sandrine Garcia [employer] BUSINESS ANALYST.FORESTRY SUPERVISOR Work Phone: [facility] 05-26-2023 12:18-0400 Diastolic blood pressure 82 mm[Hg] Sandrine Garcia [employer] BUSINESS ANALYST.FORESTRY SUPERVISOR Work Phone: [facility] 05-26-2023 12:18-0400 Heart rate 64 /min Sandrine Garcia [employer] BUSINESS ANALYST.FORESTRY SUPERVISOR Work Phone: [facility] 05-26-2023 12:18-0400 Respiratory rate 16 /min Sandrine Garcia [employer] BUSINESS ANALYST.FORESTRY SUPERVISOR Work Phone: [facility] 05-26-2023 12:18-0400 SaO2% (BldA) [Mass fraction] 100 % Sandrine Garcia [employer] BUSINESS ANALYST.FORESTRY SUPERVISOR Work Phone: [facility] 05-26-2023 12:18-0400 Systolic blood pressure 122 mm[Hg] Sandrine Garcia [employer] BUSINESS ANALYST.FORESTRY SUPERVISOR Work Phone: [facility] 11-14-2022 09:43-0500 Body height 170.2 cm Alia Curry MD Work Phone: [facility] 11-14-2022 09:43-0500 Body temperature 99.39 [degF] Alia Curry MD Work Phone: [facility] 11-14-2022 09:43-0500 Body weight 106.14 kg Alia Curry MD Work Phone: [facility] 11-14-2022 09:43-0500 Diastolic blood pressure 70 mm[Hg] Alia Curry MD Work Phone: [facility] 11-14-2022 09:43-0500 Heart rate 93 /min Alia Curry MD Work Phone: [facility] 11-14-2022 09:43-0500 Respiratory rate 12 /min Alia Curry MD Work Phone: [facility] 11-14-2022 09:43-0500 SaO2% (BldA) [Mass fraction] 99 % Alia Curry MD Work Phone: [facility] 11-14-2022 09:43-0500 Systolic blood pressure 130 mm[Hg] Alia Curry MD Work Phone: [facility] 08-19-2022 13:02-0400 Diastolic blood pressure 86 mm[Hg] Shanti Older [employer] BUSINESS ANALYST.MUNICIPAL MAINTENANCE WORKER Work Phone: [facility] 08-19-2022 13:02-0400 Systolic blood pressure 134 mm[Hg] Shanti Older [employer] BUSINESS ANALYST.MUNICIPAL MAINTENANCE WORKER Work Phone: [facility] 05-19-2022 10:09-0400 Body weight 105.69 kg Shanti Older [employer] BUSINESS ANALYST.MUNICIPAL MAINTENANCE WORKER Work Phone: [facility] 05-19-2022 10:09-0400 Diastolic blood pressure 72 mm[Hg] Shanti Older [employer] BUSINESS ANALYST.MUNICIPAL MAINTENANCE WORKER Work Phone: [facility] 05-19-2022 10:09-0400 Heart rate 68 /min Shanti Older [employer] BUSINESS ANALYST.MUNICIPAL MAINTENANCE WORKER Work Phone: [facility] 05-19-2022 10:09-0400 Respiratory rate 16 /min Shanti Older [employer] BUSINESS ANALYST.MUNICIPAL MAINTENANCE WORKER Work Phone: [facility] 05-19-2022 10:09-0400 Systolic blood pressure 114 mm[Hg] Shanti Older [employer] BUSINESS ANALYST.MUNICIPAL MAINTENANCE WORKER Work Phone: [facility] 01-19-2022 17:55-0400 Body height 170.2 cm Alia Curry MD Work Phone: [facility] 01-19-2022 17:55-0400 Body temperature 98.2 [degF] Alia Curry MD Work Phone: [facility] 01-19-2022 17:55-0400 Body weight 105.23 kg Alia Curry MD Work Phone: [facility] 01-19-2022 17:55-0400 Diastolic blood pressure 60 mm[Hg] Alia Curry MD Work Phone: [facility] 01-19-2022 17:55-0400 Heart rate 88 /min Alia Curry MD Work Phone: [facility] 01-19-2022 17:55-0400 Respiratory rate 12 /min Alia Curry MD Work Phone: [facility] 01-19-2022 17:55-0400 SaO2% (BldA) [Mass fraction] 98 % Alia Curry MD Work Phone: [facility] 01-19-2022 17:55-0400 Systolic blood pressure 120 mm[Hg] Alia Curry MD Work Phone: [facility] 06-13-2017 09:46-0400 BMI (Body Mass Index) 34.86 kg/m2 Kim Castrejon MD [facility] 06-13-2017 09:46-0400 Body Temperature 97.5 [degF] Kim Castrejon MD [facility] 06-13-2017 09:46-0400 BP Diastolic 86 mm[Hg] Kim Castrejon MD [facility] 06-13-2017 09:46-0400 BP Systolic 127 mm[Hg] Kim Castrejon MD [facility] 06-13-2017 09:46-0400 Height 170.18 cm Kim Castrejon MD [facility] 06-13-2017 09:46-0400 Pulse (Heart Rate) 73 /min Kim Castrejon MD [facility] 06-13-2017 09:46-0400 Respiratory Rate 16 /min Kim Castrejon MD [facility] 06-13-2017 09:46-0400 Weight 100.97 kg Kim Castrejon MD [facility] 04-14-2010 13:17-0400 BMI (Body Mass Index) 44.39 kg/m2 Kim Castrejon MD [facility] 04-14-2010 13:17-0400 Body Temperature 97.3 [degF] Kim Castrejon MD [facility] 04-14-2010 13:17-0400 BP Diastolic 74 mm[Hg] Kim Castrejon MD [facility] 04-14-2010 13:17-0400 BP Systolic 119 mm[Hg] Kim Castrejon MD [facility] 04-14-2010 13:17-0400 Height 144.78 cm Kim Castrejon MD [facility] 04-14-2010 13:17040 Pulse (Heart Rate) 82 /min Kim Castrejon MD [facility] 04-14-2010 13:170400 Respiratory Rate 11 /min Kim Castrejon MD [facility] 04-14-2010 13:17040 Weight 92.72 kg Kim Castrejon MD [facility] Encounters Encounter Date Encounter Type Care Provider Facility Start: 10-11-2023 End: 10-12-2023 ambulatory ALIA CURRY Facility:[facility] Start: 09-29-2023 Refill Shanti Bishop APRN .MUNICIPAL MAINTENANCE WORKER Work Phone: [facility] Procedures Date Procedure Procedure Detail Performing Clinician Start: 09-07-2023 Ecg routine ecg w/least 12 lds i&r only [facility] Provider Start: 05-26-2023 STREP A MOLECULAR (POC) Sandrine Garcia APR N.FORESTRY SUPERVISOR Work Phone: Start: 11-14-2022 COVID WITH FLUA+B, ROUTINE Alia Curry MD Work Phone: Start: 01-22-2022 Lipid 1996 panel - Serum or Plasma Shanti Bishop APRN.MUNICIPAL MAINTENANCE WORKER Work Phone: Start: 03-25-2021 Mammography Alia Curry [...] - S ronni or Plasma Lipid Screening [facility] Start: 01-22-2027 LIPID SCREEN LIPID SCREEN [facility] Start: 09-08-2026 Diabetes Screening Diabetes Screenin g [facility] Start: 05-19-2025 DIABETES SCREEN DIABETES SCREEN [facility] Start: 09-07-2024 Annual PCP Team Senior Ruby Developer crystal Disease Visit Annual PCP Team Chronic Disease Visit [facility] Start: 09-07-2024 Covid-19 Vaccine (#1) Covid-19 Vacci ne (#1) [facility] Immunizations Immunization Date Immunization Notes Care Provider Fa cility 07-29-2021 influenza, injectabl e, quadrivalent, contains preservative Alia Curry MD Work Phone: [facility] 07-29-2021 influenza virus vacc ine, unspecified formulation Shanti Bishop APRN.CNP Work Phone: [facility] Payers Date Payer Category Payer Private Health Insurance [employer] A ETNA CHOICE POS II [id number] 2014-Present [phone] [address] [place] [address] POS [id number] 2014 Private Health Insurance [id number] 2014 Private Health Insurance [id number] Social History Date Type Detail Facility Start: 01-23-2012 Tobacco smoking stat us WAIS Never smoked tobacco [facility] Work Phone: Start: 01-19-2022 End: 09-07-2023 Alcohol intake Current non-drinker of alcohol (finding) [facility] Start: 01-17-2022 End: 11-14-2022 History SDOH Alcohol Frequency 3 [facility] Start: 01-17-2022 End: 11-14-2022 History SDOH Alcohol Std Drinks 1 [facility] Start: 01-17-2022 History SDOH Social Connections Phone 4 [facility] Start: 01-17-2022 History SDOH Social Connections Anabaptism 98 [facility] Start: 01-17-2022 End: 11-14-2022 History SDOH Physical Activity DPW 2 [facility] Start: 01-17-2022 End: 11-14-2022 History SDOH Financial 5 [facility] Start: 01-17-2022 History SDOH Housing Places Lived 0 [facility] Start: 1975 Sex Assigned At Not on file [facility] Start: 01-09-2022 End: 02-11-2022 Exposure to SARS-CoV-2 (event) Not sure [facility] Work Phone: Start: 05-09-2022 End: 05-19-2022 Exposure to SARS-CoV-2 (event) Unable to assess [facility] Start: 01-23-2012 Tobacco use and exposure Smoke less tobacco non-user [facility] Start: 11-14-2022 End: 03-22-2023 History of Social function [facility] Start: 11-14-2022 End: 03-22-2023 Social connection and isolation panel [facility] Do you belong to any clubs or organizations such as confucianism groups, unions, fraternal or athletic groups, or school groups? Yes [facility] Are you now , , , , never or living with a partner? [facility] How often to you hav e a drink containing alcohol? 2-4 times a month [facility] Average Number of Drinks Not on file [facility] How often do you hav e 6 or more drinks on 1 occasion? Less than monthly [facility] Do you feel stress - tense, restless, nervous, or anxious, or unable to sleep at night because your mind is troubled all the time - these days [OSQ] Not at all [facility] (I/We) worried johanna er (my/our) food would run out before (I/we) got money to buy more. Never true [facility] The food that (I/we) bought just didn't last, and (I/we) didn't have money to get more. Sometimes true [facility] In the past 12 month s, was there a time when you were not able to pay the mortgage or rent on time? No [facility] Clinical Notes 02-12-2012 to 10-11-2023 Telephone Encounter - Lyn Villagran E - 09/29/2023 11:26 AM Shanti Avalos APRN.MUNICIPAL MAINTENANCE WORKER - 09/07/2023 2:29 PM ESTPatient InstructionsSandrine Garcia APRN.FORESTRY SUPERVISOR - 05/26/2023 12:20 PM EDTPatient Instructions Note Date & Type Note Facility 10-11-2023 Note HNO ID: [id number] Author: Shanti Bishop APRN.ZOLTAN Service: ? Author [...] F32.A (primary diagn (more content not included)... [facility] 09-29-2023 Miscellaneous Notes Patient has been [...] you. Lyn Villagran. documented in this encounter [facility] 09-08-2023 Note HNO ID: [id number] Author: Daisy Evrin RT(R) Service: Radiology Author Type: Technologist Type: [...] RT Allie(R) September 08, 2023 11:00 AM [facility] 09-07-2023 Note HNO ID: [id number] Author: Shanti Bsihop APRN.MUNICIPAL MAINTENANCE WORKER Service: ? Author Type: Nurse Practitioner Type: [...] on 12/16/2023 Diabe (more content not included)... [facility] 09-07-2023 History of Presen t illness [...] Anterior Infarct AXIS: Normal axis INTERVALS: Normal LA interval QRS COMPLEX: Normal QT INTERVAL: Normal [...] - Instructed patient to contact office or [id number] after-hours promptly should condition worsen or any new symptoms appear. - Counseling [facility] and after hours crisis line 5. Abnormal [...] Shanti Bishop APRN.CNP documented in this encounter [facility] 05-26-2023 Note HNO ID: [id number] Author: Sandrine Garcia APRN.FORESTRY SUPERVISOR Service: ? Author Type: Nurse Specialist Type: [...] Mucosal edema and rhinorrhea present. Mouth/Throat: Lips: [place]. Mouth: Mucous membranes are moist. Pharynx: Oropharynx [...] APRN.CNS Medical Dec (more content not included)... [facility] 05-26-2023 Instructions Sandrine Garcia APRN.CNS - [...] or concerning symptoms. documented in this encounter [facility] 05-26-2023 History of Presen t illness Narrative [...] or exposure to smoke yesterday at the [facility]. Review of Systems HENT: Positive [...] Mucosal edema and rhinorrhea present. Mouth/Throat: Lips: [place]. Mouth: Mucous membranes are moist. Pharynx: Oropharynx [...] 3 - Low documented in this encounter [facility] 05-03-2023 Note Patient Outreach (IN TMMN) DIANNE ROSS ([id number]) 1975 F Date Time Provider Department 05/03/23 ALIA CURRY During your visit today, we recorded the following information about you: Allergies As of Date: 05/03/2023 Noted Allergy Reaction environmental [Other] 08/24/2005 PROPYLTHIOURACIL 08/24/2005 4 - Hives TAPAZOLE (METHIMAZOLE) 08/24/2005 2 - Rash Date Reviewed: 12/16/2022 Reviewed by: Lyn Montanez LPN - Fully Assessed Visit Diagnosis:Encounter for screening mammogram for breast cancer [Z12.31] Order(s):[facility] SCREENING [[id number]] Order #: [id number] FUTURE Prescriptions as of 05/08/2023 - levothyroxine [...] Encounter Status:Closed by MACHO CHANELUSER on 05/08/23 [facility] 12-23-2022 Miscellaneous Notes Patient notified. ----- [...] the 200 mgs documented in this encounter [facility] 12-23-2022 Miscellaneous Notes patient notified and verbalized understanding. Lyn Montanez LPN Changing the way the patient takes her thyroid medication Holding for one day of the week Regards, Alia Curry MD documented in this encounter [facility] 12-16-2022 Note HNO ID: [id number] Author: Alia Curry MD Service: ? Author [...] make her be anemic Alia Curry MD [facility] 11-24-2022 Miscellaneous Notes Patient notified. Increased [...] the past week documented in this encounter [facility] 11-22-2022 Miscellaneous Notes Patient has been notified . Lyn Montanez LPN She is very anemic, cbc was the test done by it service technician. Patient needs to make sure her bleeding stops with the use of her medication or interventions from it service technician Her tsh was mildy abnormal 7 months ago. Ordering new tests to get her thyroid levels. Alia Crum MD Patient had lab work ordered by [facility] and TSH is abnormal. Patient is wanting labs reviewed, please. Patient wonders if she needs to start medication. Please review and advise. Lyn Montanez LPN documented in this encounter [facility] 11-16-2022 Miscellaneous Notes Noted. Contacted patient and provider's message below was reviewed. Pt verbalized understanding. Pt current condition includes: Denies feeling disoriented. Temp was 102.0 this morning. She took tylenol at 5am and temp came down to 101.0. 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 Castrejon, and has been prescribed medication [...] culture Also will have to get her it service technician to address the bleeding as it has not really stopped completely. Who is her it service technician? Regards, Alia Curry MD documented in this encounter [facility] 11-15-2022 Miscellaneous Notes Placed call to patient with no answer. Voicemail verified. Left detailed message informing her of neg results and to call back with any questions or concerns. Rebecca Santacruz ----- Message from Alia Curry MD sent at 11/15/2022 6:52 AM EST ----- The flu a and flu b are negative so is covid Regards, Alia Curry MD documented in this encounter [facility] 11-15-2022 Miscellaneous Notes VM left for pt updating her of lab orders placed. Instructed pt to call PCP office if has any further questions or concerns. Kirsten Hardy RN Please let patient know that labs have been ordered along with urine. Regards, Alia Curry MD documented in this encounter [facility] 11-14-2022 Influenza virus A and B RNA and SARS-CoV-2 (COVID-19) N gene panel YAYA+probe (Resp) COVID 19 RESULT: SARS-CoV-2 (Agent of COVID-19) Not Detected by RT-PCR or equivalent method. This test was developed and its performance characteristics determined by [facility] [place]. This test has been authorized by FDA under an Emergency Use Authorization (EUA). This test has been validated in accordance with the FDA's Guidance Document Policy for Diagnostics Testing in Laboratories Certified to Perform High Complexity Testing under CLIA prior to Emergency use Authorization for Coronavirus Disease 2019 during the Public Health Emergency issued on December 28, 2019. Test performed by [facility], [facility] [place], [address] [place] [address]. 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 documented as of this encounter (statuses as of 02/11/2022) [address]-2012 History of Past illness Narrative* Problem Noted Date Resolved Date Nontoxic multinodular 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 documented as of this encounter (statuses as of 05/09/2022) [address]-2012 History of Past illness Narrative* Problem Noted Date Resolved Date Nontoxic multinodular 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 documented as of this encounter (statuses as of 05/19/2022) [address]-2012 History of Past illness Narrative* Problem Noted Date Resolved Date Nontoxic multinodular 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 documented as of this encounter (statuses as of 05/20/2022) [address]2012 History of Past illness Narrative* Problem Noted Date Resolved Date Nontoxic multinodular 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 documented as of this encounter (statuses as of 05/20/2022) [address]-2012 History of Past illness Narrative* Problem Noted Date Resolved Date Nontoxic multinodular 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 documented as of this encounter (statuses as of 05/31/2022) [address]2012 History of Past illness Narrative* Problem Noted Date Resolved Date Nontoxic multinodular 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 documented as of this encounter (statuses as of 06/29/2022) [address]-2012 History of Past illness Narrative* Problem Noted Date Resolved Date Nontoxic multinodular 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 documented as of this encounter (statuses as of 08/19/2022) [address]2012 History of Past illness Narrative* Problem Noted Date Resolved Date Nontoxic multinodular 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 documented as of this encounter (statuses as of 08/24/2022) [address]-2012 History of Past illness Narrative* Problem Noted Date Resolved Date Nontoxic multinodular 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 documented as of this encounter (statuses as of 09/12/2022) [address]2012 History of Past illness Narrative* Problem Noted Date Resolved Date Nontoxic multinodular 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 documented as of this encounter (statuses as of 09/15/2022) [address]2012 History of Past illness Narrative* Problem Noted Date Resolved Date Nontoxic multinodular 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 documented as of this encounter (statuses as of 11/14/2022) [address]-2012 History of Past illness Narrative* Problem Noted Date Resolved Date Nontoxic multinodular 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 documented as of this encounter (statuses as of 11/14/2022) [address]2012 History of Past illness Narrative* Problem Noted Date Resolved Date Nontoxic multinodular 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 documented as of this encounter (statuses as of 11/15/2022) [address]2012 History of Past illness Narrative* Problem Noted Date Resolved Date Nontoxic multinodular 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 documented as of this encounter (statuses as of 11/17/2022) [address]2012 History of Past illness Narrative* Problem Noted Date Resolved Date Nontoxic multinodular 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 documented as of this encounter (statuses as of 11/22/2022) [address]2012 History of Past illness Narrative* Problem Noted Date Resolved Date Nontoxic multinodular 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 documented as of this encounter (statuses as of 11/24/2022) [address]-2012 History of Past illness Narrative* Problem Noted Date Resolved Date Nontoxic multinodular 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 documented as of this encounter (statuses as of 12/23/2022) [address]2012 History of Past illness Narrative* Problem Noted Date Resolved Date Nontoxic multinodular 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 documented as of this encounter (statuses as of 12/23/2022) [address]-2012 History of Past illness Narrative* Problem Noted Date Diagnosed Date Resolved Date Nontoxic multinodular 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 02/12/2012 documented as of this encounter (statuses as of 05/08/2023) [address]-2012 History of Past illness Narrative* Problem Noted Date Diagnosed Date Resolved Date Nontoxic multinodular 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 02/12/2012 documented as of this encounter (statuses as of 05/26/2023) [facility] History of Past illness Narrative* Problem Noted Date Diagnosed Date Resolved Date Nontoxic multinodular 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 02/12/2012 documented as of this encounter (statuses as of 09/11/2023) [address]2012 History of Past illness Narrative* Problem Noted Date Diagnosed Date Resolved Date Nontoxic multinodular 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 02/12/2012 documented as of this encounter (statuses as of 09/29/2023) [facility] note* Diagnosis Obstructive sleep apnea syndrome- Primary Obstructive sleep apnea (adult) (pediatric) Hypothyroidism, unspecified type Falling hair Alopecia, unspecified Acute pain of right knee Patellar bursitis of right knee [facility] Diagnosis Right knee pain, unspecified chronicity- Primary [facility] Diagnosis Acute pain of right knee [facility] Diagnosis Encounter for screening mammogram for breast cancer [facility] Diagnosis Obstructive sleep apnea syndrome- Primary Obstructive sleep apnea (adult) (pediatric) Other fatigue Psoriasis with arthropathy (HCC) Psoriatic arthropathy Acquired hypothyroidism Unspecified hypothyroidism Dysmetabolic syndrome Dysmetabolic Syndrome X [facility] Diagnosis Acquired hypothyroidism Unspecified hypothyroidism [facility] Diagnosis Acute cough- Primary Shortness of breath Chest pain, unspecified type Acute otitis media, unspecified otitis media type Acute non-recurrent maxillary sinusitis Obstructive sleep apnea syndrome Obstructive sleep apnea (adult) (pediatric) [facility] Acute non-recurrent maxillary sinusitis [facility] Diagnosis Shortness of breath [facility] Diagnosis Viral infection- Primary Unspecified viral infection, in conditions classified elsewhere and of unspecified site Nonintractable headache, unspecified chronicity pattern, unspecified headache type Body aches Generalized pain documented in this encounter [facility]* Diagnosis Fever, unspecified fever cause- Primary Dysuria documented in this encounter [facility] note* Diagnosis Acquired hypothyroidism- Primary Unspecified hypothyroidism documented in this encounter [facility] note* Diagnosis Acquired hypothyroidism- Primary Unspecified hypothyroidism documented in this encounter [facility] note* Diagnosis Acquired hypothyroidism Unspecified hypothyroidism documented in this encounter [facility] note* Diagnosis Encounter for screening mammogram for breast cancer documented in this encounter [facility] note* Diagnosis Facial swelling- Primary Swelling, mass, or lump in head and neck Sore throat Acute pharyngitis Shortness of breath Acute non-recurrent maxillary sinusitis documented in this encounter [facility] note* Diagnosis Chest pain, unspecified type- Primary Right foot pain Pain in limb Acquired hypothyroidism Unspecified hypothyroidism Anxiety and depression Dysthymic disorder Abnormal ECG Nonspecific abnormal electrocardiogram (ECG) (EKG) documented in this encounter [facility] for referral (narrative)* Diagnostic Procedure Only (Routine) - Pending Review Specialty Diagnoses / Procedures Referred By Mansi marino Referred To Contact XR IMAGING Diagnoses Right knee pain, unspecified chronicity Procedures XR KNEE GENERAL 4V AP BOTH/PA BOTH/LAT/MERC RIGHT RADIOLOGIC EXAM KNEE COMPLETE 4/MORE VIEWS Fernando Zimmer V, DO [address] [place] [address] Xr Imaging Referral ID Status Reason Start Date Expiration Date Visits Requested Visits Authorized [id number] Pending Review Auto-Generat ed Referral 01/25/2022 02/24/2023 [facility] Diagnostic Procedure Only (Routine) - Pending Review Specialty Diagnoses / Procedures Referred By Mansi marino Referred To Contact [facility] Diagnoses Encounter for screening mammogram for breast cancer Procedures ALLISON SCREENING SCREENING MAMMOGRAPHY BI 2-VIEW BREAST INC Alia Goetz MD [address] [place] [address] [facility] [address] [place] [address] Referral ID Status Reason Start Date Expiration Date Visits Requested Visits Authorized [id number] Pending Review Auto-Generat ed Referral 05/04/2022 06/03/2023 1 1 [facility] for referral (narrative)* Diagnostic Procedure Only (Routine) - Pending Review Specialty Diagnoses / Procedures Referred By Natalieac t Referred To Contact BR IMAG[facility] Diagnoses Encounter for screening mammogram for breast cancer Procedures ALLISON SCREENING SCREENING MAMMOGRAPHY BI 2-VIEW BREAST INC Alia Goetz MD [address] [place] [address] [facility] [address] [place] [address] Referral ID Status Reason Start Date Expiration Date Visits Requested Visits Authorized [id number] Pending Review Auto-Generat ed Referral 05/03/2023 06/01/2024 1 1 [facility] for referral (narrative)* Outpatient Procedure (Routine) - Authorized Specialty Diagnoses / Procedures Referred By Contac t Referred To [facility] Diagnoses Chest pain, unspecified type Abnormal ECG Procedures ECHO ECHO TTHRC R-T 2D W/WOM-MODE COMPL SPEC&COLR D Shanti Bishop APRN.MUNICIPAL MAINTENANCE WORKER [address] [place] [address] [facility] [place] [address] [place] [address] Referral ID Status Reason Start Date Expiration Date Visits Requested Visits Authorized [id number] Authorized Auto-Generat ed Referral 09/07/2023 09/06/2024 1 1 * Diagnostic Procedure Only (Routine) - Closed Specialty Diagnoses / Procedures Referred By Contac t Referred To Contact XR IMAGING Diagnoses Right foot pain Procedures XR FOOT GENERAL 3V AP/LAT/OBL RIGHT RADEX FOOT COMPLETE MINIMUM 3 VIEWS Shanti Bishop APRN.MUNICIPAL MAINTENANCE WORKER [address] [place] [address] [place] [id number] Referral ID Status Reason Start Date Expiration Date V isits Requested Visits Authorized [id number] Closed Auto-Generate d Referral 09/07/2023 10/06/2024 [address] [facility] Reason for Referral Specialty Diagnoses / Procedures Referred By Mansi t Referred To Contact Orthopedics Diagnoses Acute pain of right knee Procedures CONSULT TO ORTHOPAEDICS OFFICE/OUTPATIENT NEW HIGH MDM 60-74 MINUTES Alia Curry MD [address] [place] [address] Referral ID Status Reason Start Date Expiration Date Visits Requested Visits Authorized [id number] Pending Review PCP Requested Referral 01/19/2022 01/19/2023 [...] or prosecute any alcohol or drug abuse patient.[facility] the event this information is protected by the Federal Confidentiality of Alcohol and Drug Abuse Patient Records regulations: The Federal rules restrict any use of the information to criminally investigate or prosecute any alcohol or drug abuse patient.[facility] the event this information is protected by the Federal Confidentiality of Alcohol and Drug Abuse Patient Records regulations: The Federal rules restrict any use of the information to criminally investigate or prosecute any alcohol or drug abuse patient.[facility] the event this information is protected by the Federal Confidentiality of Alcohol and Drug Abuse Patient Records regulations: The Federal rules restrict any use of the information to criminally investigate or prosecute any alcohol or drug abuse patient.[facility] the event this information is protected by the Federal Confidentiality of Alcohol and Drug Abuse Patient Records regulations: The Federal rules restrict any use of the information to criminally investigate or prosecute any alcohol or drug abuse patient.[facility] the event this information is protected by the Federal Confidentiality of Alcohol and Drug Abuse Patient Records regulations: The Federal rules restrict any use of the information to criminally investigate or prosecute any alcohol or drug abuse patient.[facility] the event this information is protected by the Federal Confidentiality of Alcohol and Drug Abuse Patient Records regulations: The Federal rules restrict any use of the information to criminally investigate or prosecute any alcohol or drug abuse patient.[facility] the event this information is protected by the Federal Confidentiality of Alcohol and Drug Abuse Patient Records regulations: The Federal rules restrict any use of the information to criminally investigate or prosecute any alcohol or drug abuse patient.[facility] the event this information is protected by the Federal Confidentiality of Alcohol and Drug Abuse Patient Records regulations: The Federal rules restrict any use of the information to criminally investigate or prosecute any alcohol or drug abuse patient.[facility] the event this information is protected by the Federal Confidentiality of Alcohol and Drug Abuse Patient Records regulations: The Federal rules restrict any use of the information to criminally investigate or prosecute any alcohol or drug abuse patient.[facility] the event this information is protected by the Federal Confidentiality of Alcohol and Drug Abuse Patient Records regulations: The Federal rules restrict any use of the information to criminally investigate or prosecute any alcohol or drug abuse patient.[facility] the event this information is protected by the Federal Confidentiality of Alcohol and Drug Abuse Patient Records regulations: The Federal rules restrict any use of the information to criminally investigate or prosecute any alcohol or drug abuse patient.[facility] the event this information is protected by the Federal Confidentiality of Alcohol and Drug Abuse Patient Records regulations: The Federal rules restrict any use of the information to criminally investigate or prosecute any alcohol or drug abuse patient.[facility] the event this information is protected by the Federal Confidentiality of Alcohol and Drug Abuse Patient Records regulations: The Federal rules restrict any use of the information to criminally investigate or prosecute any alcohol or drug abuse patient.[facility] the event this information is protected by the Federal Confidentiality of Alcohol and Drug Abuse Patient Records regulations: The Federal rules restrict any use of the information to criminally investigate or prosecute any alcohol or drug abuse patient.[facility] the event this information is protected by the Federal Confidentiality of Alcohol and Drug Abuse Patient Records regulations: The Federal rules restrict any use of the information to criminally investigate or prosecute any alcohol or drug abuse patient.[facility] the event this information is protected by the Federal Confidentiality of Alcohol and Drug Abuse Patient Records regulations: The Federal rules restrict any use of the information to criminally investigate or prosecute any alcohol or drug abuse patient.[facility] the event this information is protected by the Federal Confidentiality of Alcohol and Drug Abuse Patient Records regulations: The Federal rules restrict any use of the information to criminally investigate or prosecute any alcohol or drug abuse patient.[facility] the event this information is protected by the Federal Confidentiality of Alcohol and Drug Abuse Patient Records regulations: The Federal rules restrict any use of the information to criminally investigate or prosecute any alcohol or drug abuse patient.[facility] the event this information is protected by the Federal Confidentiality of Alcohol and Drug Abuse Patient Records regulations: The Federal rules restrict any use of the information to criminally investigate or prosecute any alcohol or drug abuse patient.[facility] the event this information is protected by the Federal Confidentiality of Alcohol and Drug Abuse Patient Records regulations: The Federal rules restrict any use of the information to criminally investigate or prosecute any alcohol or drug abuse patient.[facility] the event this information is protected by the Federal Confidentiality of Alcohol and Drug Abuse Patient Records regulations: The Federal rules restrict any use of the information to criminally investigate or prosecute any alcohol or drug abuse patient.[facility] the event this information is protected by the Federal Confidentiality of Alcohol and Drug Abuse Patient Records regulations: The Federal rules restrict any use of the information to criminally investigate or prosecute any alcohol or drug abuse patient.[facility] the event this information is protected by the Federal Confidentiality of Alcohol and Drug Abuse Patient Records regulations: The Federal rules restrict any use of the information to criminally investigate or prosecute any alcohol or drug abuse patient.[facility] the event this information is protected by the Federal Confidentiality of Alcohol and Drug Abuse Patient Records regulations: The Federal rules restrict any use of the information to criminally investigate or prosecute any alcohol or drug abuse patient.[facility] the event this information is protected by the Federal Confidentiality of Alcohol and Drug Abuse Patient Records regulations: The Federal rules restrict any use of the information to criminally investigate or prosecute any alcohol or drug abuse patient.[facility] Reason for Visit (unrecogniz ed section and content) Reason Comments New Patient Right knee pain REF: [facility] Specialty Diagnoses / Procedures Referred By Mansi marino Referred To Contact Orthopedics Diagnoses Acute pain of right knee Procedures CONSULT TO ORTHOPAEDICS OFFICE/OUTPATIENT NEW HIGH MDM 60-74 MINUTES Alia Curry MD [address] [place] [address] Referral ID Status Reason Start Date Expiration Date Visits Requested Visits Authorized [id number] Pending Review PCP Requested Referral 01/19/2022 01/19/2023 [...] Care Teams (unrecognized sec tion and content) Drawing Box Tender Relationship Specialty Start Date End Date Alia Curyr MD [address] [place], [place] [id number] PCP - General Internal Medicine 03/26/21 Drawing Box Tender Relationship Specialty Start Date End Date Alia Curry MD [address] [place], [place] [id number] PCP - General Internal Medicine 03/26/21 Drawing Box Tender Relationship Specialty Start Date End Date Alia Curry MD [address] [place], [place] [id number] PCP - General Internal Medicine 03/26/21 Drawing Box Tender Relationship Specialty Start Date End Date Alia Curry MD [address] [place] [address] PCP - General Internal Medicine 03/26/21 Drawing Box Tender Relationship Specialty Start Date End Date Alia Curry MD [address] [place] [address] PCP - General Internal Medicine 03/26/21 Drawing Box Tender Relationship Specialty Start Date End Date Alia Curry MD [address] [place] [address] PCP - General Internal Medicine 03/26/21 Drawing Box Tender Relationship Specialty Start Date End Date Alia Curry MD [address] [place] [address] PCP - General Internal Medicine 03/26/21 Drawing Box Tender Relationship Specialty Start Date End Date Alia Curry MD [address] [place] [address] PCP - General Internal Medicine 03/26/21 Drawing Box Tender Relationship Specialty Start Date End Date Alia Curry MD [address] [place] [address] PCP - General Internal Medicine 03/26/21 Drawing Box Tender Relationship Specialty Start Date End Date Alia Curry MD [address] [place] [address] PCP - General Internal Medicine 03/26/21 Drawing Box Tender Relationship Specialty Start Date End Date Alia Curry MD [address] [place] [address] PCP - General Internal Medicine 03/26/21 Drawing Box Tender Relationship Specialty Start Date End Date Alia Curry MD [address] [place] [address] PCP - General Internal Medicine 03/26/21 Drawing Box Tender Relationship Specialty Start Date End Date Alia Curry MD [address] [place] [address] PCP - General Internal Medicine 03/26/21 Drawing Box Tender Relationship Specialty Start Date End Date Alia Curry MD [address] [place] [address] PCP - General Internal Medicine 03/26/21 Drawing Box Tender Relationship Specialty Start Date End Date Alia Curry MD [address] [place] [address] PCP - General Internal Medicine 03/26/21 Drawing Box Tender Relationship Specialty Start Date End Date Alia Curry MD [address] [place] [address] PCP - General Internal Medicine 03/26/21 Drawing Box Tender Relationship Specialty Start Date End Date Alia Curry MD [address] [place] [address] PCP - General Internal Medicine 03/26/21 Drawing Box Tender Relationship Specialty Start Date End Date Alia Curry MD [address] [place] [address] PCP - General Internal Medicine 03/26/21 Drawing Box Tender Relationship Specialty Start Date End Date Alia Curry MD [address] [place] [address] PCP - General Internal Medicine 03/26/21 INFORMATION [...] BE BASED ON THE PRIMARY CLINICAL RECORDS. [facility] [employer] [facility]. provides no warranty or guarantee of the accuracy or completeness of information in this document.
== END | disposition home or self-care (01) ==
LOC: OPBI 09:56
PROVIDERS: PCP Nurse Practitioner; Referring Provider Nurse Practitioner Women's Health; Visit Provider Nurse Practitioner Women's Health
DX: Z12.31 Encounter for screening mammogram for malignant neoplasm of breast (principal)
CPT/HCPCS: 77063; 77067

== ENCOUNTER → 2024-12-23 | Outpatient (CLI) | payer OTHER, SELFPAY ==
--- NOTE | 2024-12-23 12:26 | BI_ITS ---
PROCEDURE: SCRN MAMM (CAD)W/EDUARD BILAT REASON FOR EXAM: F, Age 49 y/o, mother with breast cancer. Routine mammographic follow-up. TECHNIQUE: Bilateral screening digital breast tomosynthesis with 2D and 3D images. Computer aided detection. COMPARISON: Prior exam(s) dating back to December 15, 2023.. FINDINGS: The breasts are heterogeneously dense which may obscure small masses. Stable small bilateral axillary lymph nodes. No suspicious masses, areas of developing architectural distortion, or suspicious calcifications. BI/SCRN MAMM (CAD)W/EDUARD BILAT IMPRESSION: BI-RADS 2: BENIGN. RECOMMEND ANNUAL MAMMOGRAPHIC SCREENING. Follow-up code: Routine Follow-up The patient will be notified of the results by letter. Reading Location: [id number]
== END | disposition home or self-care (01) ==
LOC: OPBI 12:25
PROVIDERS: PCP Nurse Practitioner; Referring Provider Nurse Practitioner Women's Health; Visit Provider Nurse Practitioner Women's Health
DX: Z12.31 Encounter for screening mammogram for malignant neoplasm of breast (principal)
CPT/HCPCS: 77063; 77067

== ENCOUNTER 2025-02-11 13:50 | Outpatient (RCR) | payer OTHER, MEDICAID, SELFPAY | END 2025-02-26 23:59 | LOC: NS 13:50 | PROVIDERS: PCP Nurse Practitioner; Referring Provider Nurse Practitioner Women's Health; Visit Provider Nurse Practitioner Women's Health | DX: Z71.3 Dietary counseling and surveillance (principal); E66.811 Obesity, class 1; Z68.34 Body mass index [BMI] 34.0-34.9, adult | CPT/HCPCS: 97802 ==

== ENCOUNTER 2025-03-19 10:37 | Day surgery (SDC) | payer OTHER, MEDICAID, SELFPAY ==
--- NOTE | 2025-03-18 16:50 | PAT.ANESEVAL ---
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 When Was Last Pacemaker Check QUESTION #4 FULL TEXT: You/Your Family Experience fever (hyperthermia) with Anesthesia Last Oral Intake Last Oral intake: Last Oral Intake NPO since Meds taken in AM with sips of water? Meds patient instructed to take am of surgery PONV PONV - senior product development manager: PONV - senior product development manager Female Yes 03/18/25 13:49 HX of Motion Sickness Yes 03/18/25 13:49 HX of N/V After Surgery No 03/18/25 13:49 Non-Smoker Yes 03/18/25 13:49 Duration of Surgery greater No 03/18/25 13:49 than 60 minutes Number of Risk Factors 3 03/18/25 13:49 PONV Score Moderate Risk 03/18/25 13:49 Height & Weight Height & Weight: Anesthesia: Height & Weight Height 5 ft 7 in 02/11/25 13:56 Respiratory Assessment Respiratory Assessment - senior product development manager: Respiratory Tract Infection Hx - senior product development manager Hx Respiratory Tract Infection No 03/18/25 13:49 STOP Sleep Apnea STOP Sleep Apnea - senior product development manager: STOP Sleep Apnea - senior product development manager Hx Hypertension No 03/18/25 13:49 Hx Sleep Apnea Yes 03/18/25 13:49 CPAP Yes: UNABLE TO TOLERATE MASK 03/18/25 13:49 BIPAP No 03/18/25 13:49 Do you snore loudly (louder than talking or can be heard Do you often feel tired/ fatigued/ sleepy during daytime? Has anyone observed you stop breathing during sleep? STOP Results Positive 03/18/25 13:49 QUESTION #5 FULL TEXT : Do you snore loudly (louder than talking or can be heard through closed doors)? 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 Specify any problems Hx of Preganancy in last 3 No 03/18/25 13:49 Months Nurse Filling Out Transfusion VLEHMAN 03/18/25 13:49 & Questions: Date: 03/18/25 03/18/25 13:49 Time: 13:51 03/18/25 13:49 Patient unable to answer at this time (ie. confused, unrespo /Reproduction History /Reproductive History - senior product development manager: /Reproductive Hx- senior product development manager Hx Now No 03/18/25 13:49 Gestational Age (in weeks): EDC: Hx Hx Para Hx Section SAB No 03/18/25 13:49 PFS Medical History (Updated 03/18/25 @ 13:57 by Chayito Foster) Wears dentures Wears glasses Arthritis Sleep apnea History of echocardiogram History of stress test Wears contact lenses Wears partial dentures Depression Anxiety Anemia Back pain Migraine headache CPAP (continuous positive airway pressure) dependence Non-smoker Simple ovarian cyst Thickened endometrium Uterine fibroid Menorrhagia with regular cycle Psoriatic arthritis Psoriasis Thyroid disorder Home Medications ?Medication ?Instructions ?Recorded ?Last Taken ?Type levothyroxine 150 mcg tablet 150 mcg PO DAILY HYPOTHYROID 11/22/17 02/14/23 History guselkumab 100 mg/mL subcutaneous 100 mg subcut Q8W 11/21/22 Unknown History syringe (Tremfya) jwurxbviugva-rrubexog-gclvqwy-folic 1 tab PO DAILY 02/07/23 Unknown History acid 400 mcg-vit K1 20 mcg tablet (Women's 50 Plus Advanced) fluoxetine 20 mg capsule 20 mg PO DAILY 11/09/23 Unknown History bupropion HCl 100 mg tablet,12 hr 100 mg PO QAM 12/04/24 Unknown History sustained-release (Wellbutrin SR) Allergy/AdvReac Type Severity Reaction Status Date / Time No Known Allergies Allergy Verified 12/25/24 08:31 Family History Mother Heart disease Osteoporosis Breast cancer Son Diabetes Surgical History Status post hysterectomy Hx of wisdom tooth extraction Social History (Updated 12/04/24 @ 13:59 by Lizbeth Lima NP, VAULT ATTENDANT-C) adopted: No household members: children housing: house number of children: 4 sexually active: No Smoking Status: Never smoker alcohol intake: never substance use type: does not use caffeine: Yes what type of physical activity do you participate in: walking seatbelt use: always do you feel safe at home: Yes additional social history: Audit: Pertinent Findings Pertinent Findings EKG Perinent findings: 11/09/2023. Normal sinus rhythm 83 bpm. Echo (EF%) pertinent findings: 09/12/2023. Normal size EF 60 to 65%. No significant valvular abnormalities. Recommendation Anesthesia Recommendation Anesthesia recommendation: OPTIMIZED for anesthesia
[2025-03-19] VITALS (10 sets, daily range): BP systolic 129–147; BP diastolic 72–92; PULSE 59–79; RESP 14–18; TEMP 36.3–36.4; O2SAT 97–100; BMI 34.9
[2025-03-19] MEDS: Lactated Ringers 1,000 ML 15 ML IV (11:14)
--- NOTE | 2025-03-19 11:14 | PRE.ANES_ITS ---
ASA Classification* ASA Classification ASA Classification: 2 Assessment & Plan Anesthesia* Anesthesia Assessment Anesthesia Assessment: Discussed sedation and/or anesthesia options, risks, benefits, and alternatives with patient/parents/legal guardian/POA. Questions invited. The patient/parents/legal guardian/POA seems to understand and agrees to proceed with anesthesia plan. Reviewed the physical assessment, medical history, allergy history and patient home medications list prior to surgery/procedure/anesthetic and documented any changes. Performed airway and anesthesia risk assessments. Anesthesia Type Anesthesia Type: MAC Anesthesia Focused Assessment* Temperature: 97.3 F Pulse Rate: 76 Blood Pressure: 141/92 Respiratory Rate: 16 Pulse Ox: 98 Airway Assessment Mouth opens: >3 cm Mallampati Score: II Focused Labs Anesthesia Preop lab: CBC WBC 11.9 K/mm3 (4.4-11.0) H 11/09/23 06:40 4 RBC 5.30 M/mm3 (4.2-5.4) 11/09/23 06:40 11/09/23 Hgb 14.6 g/dL (12.0-15.0) 11/09/23 06:40 11/09/23 Hct 45.7 % (37-47) 11/09/23 06:40 11/09/23 Plt Count 291 K/mm3 (150-450) 11/09/23 06:40 11/09/23 CHEMISTRY Potassium 3.4 mmol/L (3.5-5.1) L 11/09/23 06:40 11/09/23 Sodium 139 mmol/L (136-145) 11/09/23 06:40 11/09/23 Magnesium 2.2 mg/dL (1.6-2.6) 02/09/23 08:15 02/09/23 BUN 16 mg/dL (7-18) 11/09/23 06:40 11/09/23 Creatinine 1.08 mg/dL (0.55-1.02) H 11/09/23 06:40 Glucose 102 mg/dL (74-106) 11/09/23 06:40 11/09/23 POC Glucose 109 mg/dL (74-106) H 02/14/23 09:18 02/14/23 TSH 8.49 uIU/mL (0.358-3.74) H 02/09/23 08:15 01/28 01/19 COAG Tst Clinic Negative 11/24/22 09:08 11/24/22 Pre-Assessment Diagnosis/Proposed Procedure Planned Operative Procedure(s): COLONOSCOPY Anesthesia History 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 When Was Last Pacemaker Check QUESTION #4 FULL TEXT: You/Your Family Experience fever (hyperthermia) with Anesthesia Last Oral Intake Last Oral intake: Last Oral Intake NPO since 06:00 03/19/25 11:06 Meds taken in AM with sips of Yes 03/19/25 11:06 water? 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 Female Yes 03/18/25 13:49 HX of Motion Sickness Yes 03/18/25 13:49 HX of N/V After Surgery No 03/18/25 13:49 Non-Smoker Yes 03/18/25 13:49 Duration of Surgery greater No 03/18/25 13:49 than 60 minutes Number of Risk Factors 3 03/18/25 13:49 PONV Score Moderate Risk 03/18/25 13:49 Height & Weight Height & Weight: Anesthesia: Height & Weight Height 5 ft 7 in 03/19/25 11:06 Weight: 101 kg 03/19/25 11:06 Body Mass Index (BMI) 34.9 03/19/25 11:06 Respiratory Assessment Respiratory Assessment - industrial cleaning technician: Respiratory Tract Infection Hx - industrial cleaning technician Hx Respiratory Tract Infection No 03/18/25 13:49 STOP Sleep Apnea STOP Sleep Apnea - industrial cleaning technician: STOP Sleep Apnea - industrial cleaning technician Hx Hypertension No 03/18/25 13:49 Hx Sleep Apnea Yes 03/18/25 13:49 CPAP Yes: UNABLE TO TOLERATE MASK 03/18/25 13:49 BIPAP No 03/18/25 13:49 Do you snore loudly (louder than talking or can be heard Do you often feel tired/ fatigued/ sleepy during daytime? Has anyone observed you stop breathing during sleep? STOP Results Positive 03/18/25 13:49 QUESTION #5 FULL TEXT : Do you snore loudly (louder than talking or can be heard through closed doors)? 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 Specify any problems Hx of Preganancy in last 3 No 03/18/25 13:49 Months Nurse Filling Out Transfusion VLEHMAN 03/18/25 13:49 & Questions: Date: 03/18/25 03/18/25 13:49 Time: 13:51 03/18/25 13:49 Patient unable to answer at this time (ie. confused, unrespo /Reproduction History /Reproductive History - industrial cleaning technician: /Reproductive Hx- industrial cleaning technician Hx Now No 03/18/25 13:49 Gestational Age (in weeks): EDC: Hx Hx Para Hx Section SAB No 03/18/25 13:49 Active Medications Active Medications: Current Medications Generic Name Dose Route Start Last Admin Trade Name Freq PRN Reason Stop Dose Admin Lactated Ringer's 1,000 mls @ 15 mls/hr 03/19/25 11:00 IV .Q48H ESTEFANI PFSH Medical History Wears dentures Wears glasses Arthritis Sleep apnea History of echocardiogram History of stress test Wears contact lenses Wears partial dentures Depression Anxiety Anemia Back pain Migraine headache CPAP (continuous positive airway pressure) dependence Non-smoker Simple ovarian cyst Thickened endometrium Uterine fibroid Menorrhagia with regular cycle Psoriatic arthritis Psoriasis Thyroid disorder Home Medications ?Medication ?Instructions ?Recorded ?Last Taken ?Type levothyroxine 150 mcg tablet 150 mcg PO DAILY HYPOTHYR OID 11/22/17 03/19/25 06:30 History guselkumab 100 mg/mL subcutaneous 100 mg subcut Q8W Unknown History syringe (Tremfya) lgmritgjmwjj-sovdeqpl-esqfpaq-folic 1 tab PO DAILY 09/21 Unknown History acid 400 mcg-vit K1 20 mcg tablet (Women's 50 Plus Advanced) fluoxetine 20 mg capsule 20 mg PO DAILY 11/09/23 Unkn own History bupropion HCl 100 mg tablet,12 hr 100 mg PO QAM Unknown History sustained-release (Wellbutrin SR) Allergy/AdvReac Type Severity Reaction Status Date / Time No Known Allergies Allergy Verified 03/19/25 11:05 Family History Mother Heart disease Osteoporosis Breast cancer Son Diabetes Surgical History Status post hysterectomy Hx of wisdom tooth extraction Social History adopted: No household members: children housing: house number of children: 4 sexually active: No Smoking Status: Never smoker alcohol intake: never substance use type: does not use caffeine: Yes what type of physical activity do you participate in: walking seatbelt use: always do you feel safe at home: Yes additional social history: Review of Systems (Anesthesia) ROS Narrative System reviewed and no additional complaints, except as documented.
--- NOTE | 2025-03-19 11:32 | H&P.OPEN ---
[facility] - General General Date of Service: 03/19/25 [facility] Narrative MELCHOR ROSS, is a 49 F who presents for screening colonoscopy. Patient never had previous colonoscopy. Patient denies any chronic abdominal pain/nausea/vomiting/reflux. Patient has bowel movements daily denies any blood. Patient denies any family history of colon cancer. [facility] Medical History Wears dentures Wears glasses Arthritis Sleep apnea History of echocardiogram History of stress test Wears contact lenses Wears partial dentures Depression Anxiety Anemia Back pain Migraine headache CPAP (continuous positive airway pressure) dependence Non-smoker Simple ovarian cyst Thickened endometrium Uterine fibroid Menorrhagia with regular cycle Psoriatic arthritis Psoriasis Thyroid disorder Home Medications ?Medication ?Instructions ?Recorded ?Last Taken ?Type levothyroxine 150 mcg tablet 150 mcg PO DAILY HYPOTHYROID 11/22/17 03/19/25 06:30 History guselkumab 100 mg/mL subcutaneous 100 mg subcut Q8W 11/21/22 Unknown History syringe (Tremfya) mnrjwukpzybh-nkyiqdhg-bfpiyqm-folic 1 tab PO DAILY 02/07/23 Unknown History acid 400 mcg-vit K1 20 mcg tablet (Women's 50 Plus Advanced) fluoxetine 20 mg capsule 20 mg PO DAILY 11/09/23 Unknown History bupropion HCl 100 mg tablet,12 hr 100 mg PO QAM 12/04/24 Unknown History sustained-release (Wellbutrin SR) Allergy/AdvReac Type Severity Reaction Status Date / Time No Known Allergies Allergy Verified 03/19/25 11:05 Family History Mother Heart disease Osteoporosis Breast cancer Son Diabetes Surgical History Status post hysterectomy Hx of wisdom tooth extraction Social History adopted: No household members: children housing: house number of children: 4 sexually active: No Smoking Status: Never smoker alcohol intake: never substance use type: does not use caffeine: Yes what type of physical activity do you participate in: walking seatbelt use: always do you feel safe at home: Yes additional social history: Past Medical/Surgical History Planned Operation Planned Operative Procedure(s): COLONOSCOPY Previous Hospitalizations/Surgeries HX Hospitalizations: No Any Problems With Anesthesia: No You/Your Family Experience Fever (Hyperthermia) With Anes: No Cholinesterase deficiency: No Cardiovascular Hx Hypertension: No Respiratory Hx Sleep Apnea: Yes CPAP: Yes (UNABLE TO TOLERATE MASK) BIPAP: No Hx Respiratory Tract Infection/Cold (presently): No Result (for STOP score): Positive Smoking Status: Never smoker Neurological Does patient have nerve stimulator: No Reproduction : No Miscellaneous Recent Exposure to Contagious Disease: No Allergies No Known Allergies Allergy (Verified 03/19/25 11:05) Discharge Is Pt Admitted From a [facility], or a Assisted: No Who Could Help: DTR After D/C, Where Do you Plan to Go: Return Home Vital Signs Vital Signs Vital Signs: 03/19/25 11:06 03/19/25 11:06 03/19/25 11:14 Temperature 97.3 F L 97.3 F L Temperature Source Temporal Pulse Rate 76 76 Respiratory Rate 16 16 Respiratory Pattern Normal Blood Pressure 141/92 H 141/92 H Blood Pressure Mean 108 Blood Pressure Source Monitor Blood Pressure Position Semi-Fowlers Blood Pressure Location Right Arm Pulse Ox 98 98 Oxygen Delivery Method Room Air Weight Weight: 222 lb 10.67 oz Body Mass Index (BMI) 34.9 Physical Exam Const alert, oriented x3 and no apparent distress HEENT normocephalic and head/scalp atraumatic Resp normal respiratory effort Cardio regular rate GI soft to palpation and non-tender; Negative for non-distended Palpation: Negative for guarding Extremity no clubbing, cyanosis or edema Skin no rashes or lesions noted Neuro CN's II-XII intact bilaterally Psych mental status grossly normal Assessment & Plan Assessment/Plan (1) Encounter for screening for malignant neoplasm of colon: Surgery Risks - Colonoscopy I discussed with the patient the risks of the procedure: Yes Risks Include but are not Limited To: Risks include but are not limited to: Bleeding, perforation requiring further surgery, inability to complete colonoscopy requiring barium enema.
--- NOTE | 2025-03-19 12:00 | COLBX_PTH ---
PATIENT: MELCHOR ROSS LOC: EN U#:[id number] AGE/SX: 49/F ROOM: RE03/19/[address]: Dr. Vicky Calloway MD : 1975 BED: DIS: 03/19/2025 SPEC #: [id number] RECD: 03/19/25 16:04 STATUS: RADHA REQ #: [id number] MELANIE: 03/19/25 12:[address]: Vicky Calloway DEPT: SURGICAL PATHOLOGY RECD BY: Delma Lynn ENTERED: 03/20/25 07:37 SP TYPE: COLON BX OTHR DR: AMPARO ANTHONY, SILVERWARE BUFFER-C Tissues: Cecum, NOS Procedures: Surgery Specimen Level IV HEADER OPERATION: Colonoscopy with biopsies PRE-OP DIAGNOSIS: Encounter for screening for malignant neoplasm of colon TISSUE SUBMITTED: A- Cecum biopsy MICROSCOPIC DIAGNOSIS A. Colon, cecum, biopsy: Tubular adenoma. MICROSCOPIC DESCRIPTION Slides are reviewed. GROSS DESCRIPTION A. Received in formalin in a container labeled with the patient's name, date of , and cecum biopsy is a 0.6 x 0.4 x 0.3 cm fragment of renee-pink mucosal tissue. Submitted in toto in A1. B 03-20-2025 CPT:34323
--- NOTE | 2025-03-19 12:39 | OP.COLON_ITS ---
Patient Name: Dianne Mendez Procedure Date: 03/19/2025 12:07 PM Date of : 1975 Age: 49 Procedure: Colonoscopy Indications: Screening for colorectal malignant neoplasm Providers: Vicky Calloway MD Referring MD: Brenna Diaz Medicines: Monitored Anesthesia Care Patient Profile: This is a 49 year old female. Last Colonoscopy: none. The patient's first colonoscopy is today. Complications: No immediate complications. Procedure: Pre-Anesthesia Assessment: - Prior to the procedure, a History and Physical was performed, and patient medications and allergies were reviewed. The patient's tolerance of previous anesthesia was also reviewed. The risks and benefits of the procedure and the sedation options and risks were discussed with the patient. All questions were answered, and informed consent was obtained. Prior Anticoagulants: The patient has taken no anticoagulant or antiplatelet agents. ASA Grade Assessment: Per anesthesia. After reviewing the risks and benefits, the patient was deemed in satisfactory condition to undergo the procedure. After I obtained informed consent, the scope was passed under direct vision. Throughout the procedure, the patient's blood pressure, pulse, and oxygen saturations were monitored continuously. The pediatric colonoscope was introduced through the anus and advanced to the cecum, identified by the appendiceal orifice, ileocecal valve and palpation. The colonoscopy was performed without difficulty. The patient tolerated the procedure well. The quality of the bowel preparation was good. Scope In: 12:15:55 PM Scope Out: 12:34:04 PM Total Procedure Duration Time 0 hours 18 minutes 9 seconds Findings: The perianal and digital rectal examinations were normal. A less than 5 mm polyp was found in the cecum. The polyp was sessile. The polyp was removed with a cold biopsy forceps. Resection and retrieval were complete. The exam was otherwise without abnormality on direct and retroflexion views. Impression: - One less than 5 mm polyp in the cecum, removed with a cold biopsy forceps. Resected and retrieved. - The examination was otherwise normal on direct and retroflexion views. Recommendation: - Discharge patient to home. - Resume previous diet. - Continue present medications. - Await pathology results. - Repeat colonoscopy in 5 years for surveillance based on pathology results. Procedure Code(s): --- Professional --- 81278, PT, Colonoscopy, flexible; with biopsy, single or multiple Diagnosis Code(s): --- Professional --- Z12.11, Encounter for screening for malignant neoplasm of colon D12.0, Benign neoplasm of cecum CPT copyright 2021 [employer]. All rights reserved. The codes documented in this report are preliminary and upon zoology technical officer review may be revised to meet current compliance requirements. MD Vicky Urias MD 03/19/2025 12:38:43 PM This report has been signed electronically. Number of Addenda: 0 Note Initiated On: 03/19/2025 12:07 PM
--- NOTE | 2025-03-19 12:39 | OP.CCLET_ITS ---
03/19/2025 Brenna Diaz Re : Colonoscopy procedure for Dianne Bishop This procedure was performed on Wednesday, March 19, 2025. My impressions and recommendations are as follows: Impressions : - One less than 5 mm polyp in the cecum, removed with a cold biopsy forceps. Resected and retrieved. - The examination was otherwise normal on direct and retroflexion views. Recommendations : - Discharge patient to home. - Resume previous diet. - Continue present medications. - Await pathology results. - Repeat colonoscopy in 5 years for surveillance based on pathology results. My findings are described in the full procedure note, which is enclosed. If I can be of further assistance, please feel free to contact me at Doctor phone number(s): , Work: . Sincerely, MD Vicky Urias MD 03/19/2025 12:38:43 PM This report has been signed electronically.
--- NOTE | 2025-03-19 12:44 | PCM.POST.ANE ---
Anesthesia: Postop Eval I Current Vital Signs Temperature: 97.4 F Pulse Rate: 78 Blood Pressure: 134/72 Respiratory Rate: 14 Pulse Ox: 98 Oxygen Delivery Method: Room Air Assessment Airway patent: Yes Spontaneous unlabored respirations: Yes Mental status: Awake nausea: No Vomiting: No Anesthesia Complication: No Fluid Hydration Crystalloid volume administer (ml): 400 Total IV fluid infused: 400 Progress Note Anesthesia document: Postop Eval 1 completed: Yes
--- NOTE | 2025-03-19 13:19 | POSTOPAN2_ITS ---
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 respirations Mental status Awake 03/19/25 12:44 ELECTRICIAN HELPER [email or web address].HBARR nausea No 03/19/25 12:44 ELECTRICIAN HELPER [email or web address].HBARR Vomiting No 03/19/25 12:44 ELECTRICIAN HELPER [email or web address].[email or web address] Anesthesia Postop Eval I: Fluid Summary Crystalloid volume administer 400 03/19/25 12:44 ELECTRICIAN HELPER [email or web address].[email or web address] (ml) Colloids volume administered ( ml) Blood Product volume administered (ml) Total IV fluid infused 400 03/19/25 12:44 ELECTRICIAN HELPER [email or web address].HBARR Anesthesia Postop Eval I: Summary Notes Anesthesia Complication No 03/19/25 12:44 ELECTRICIAN HELPER [email or web address].[email or web address] Anesthesia Complication Comment: Post-operative progress note Anesthesia: Postop Eval II Evaluation Mental status: Awake Pain Level: 0 nausea: No Vomiting: No
--- NOTE | 2025-03-19 13:19 | PCM.POSTANE2 ---
Anesthesia Postop Eval I Sum Postop Eval Completion status Anesthesia document: Postop Eval 1 completed: Yes Anesthesia Postop Eval I Summary Anesthesia Postop Eval I Summary: Anesthesia Postop Eval I: Assessment Summary Airway patent Yes 03/19/25 12:44 [email or web address] [email or web address] Spontaneous unlabored Yes 03/19/25 12:44 [email or web address] respirations Mental status Awake 03/19/25 12:44 [email or web address] nausea No 03/19/25 12:44 [email or web address].HBARR Vomiting No 03/19/25 12:44 [employer]ER [email or web address] Anesthesia Postop Eval I: Fluid Summary Crystalloid volume administer 400 03/19/25 12:44 BUTCHER [email or web address] (ml) Colloids volume administered ( ml) Blood Product volume administered (ml) Total IV fluid infused 400 03/19/25 12:44 BUTCHER [email or web address].[email or web address] Anesthesia Postop Eval I: Summary Notes Anesthesia Complication No 03/19/25 12:44 BUTCHER [email or web address] Anesthesia Complication Comment: Post-operative progress note Anesthesia: Postop Eval II Evaluation Mental status: Awake Pain Level: 0 nausea: No Vomiting: No
== END 2025-03-19 13:55 | disposition home or self-care (01) ==
LOC: EN 10:38 → AC 10:39
PROVIDERS: PCP Nurse Practitioner; Referring Provider Nurse Practitioner; Visit Provider Surgery
PROC: 0DJD8ZZ Inspection of Lower Intestinal Tract, Via Natural or Artificial Opening Endoscopic (ICD-10-PCS; CPT 45378; principal; 2025-03-19 11:55)
DX: Z12.11 Encounter for screening for malignant neoplasm of colon (principal); D12.0 Benign neoplasm of cecum; E07.9 Disorder of thyroid, unspecified; Z79.890 Hormone replacement therapy
CPT/HCPCS: 45380; 88305